=== PATIENT | female | born 1985 ===

== ENCOUNTER 2021-01-29 16:31 | Emergency (ER) | payer MEDICAID, SELFPAY ==
[2021-01-29 16:34] VITALS: BP 118/66; PULSE 76; RESP 16; TEMP 36.1; O2SAT 98; BMI 32.9
[2021-01-29 19:14] LABS: COVID-19 Test Negative (Negative); IDNOW Serial# 08D9AD1C
--- NOTE | 2021-01-29 19:21 | ED_ITS ---
HPI - General Adult General Chief complaint: General Medical Stated complaint: covid symptoms Time Seen by Provider: 01/29/21 17:10 Source: patient Mode of arrival: ambulatory Limitations: no limitations History of Present Illness HPI narrative: 35-year-old female with upper respiratory symptoms, headache, diarrhea presents to the emergency department for COVID-19 testing. She does not report any other symptoms at this time. Onset (ago): day(s) Location: head Radiation: non-radiation Severity: mild Associated symptoms: denies other symptoms Treatments prior to arrival: none Related Data Allergies Allergy/AdvReac Type Severity Reaction Status Date / Time penicillin V Allergy Unknown Verified 03/27/14 00:00 Penicillins [PENICILLINS] Allergy Unknown RASH Unverified 02/26/20 15:20 Review of Systems Review of Systems: Constitutional: Positive headache, No Fever, No Chills ENT/Mouth: No Ear Pain, No Hoarseness, No sore throat Eyes: No Eye Pain, No Swelling, No Redness, No Foreign Body Cardiovascular: No Chest Pain, No SOB Respiratory: Positive Cough, No Dyspnea Gastrointestinal: No Nausea, No Vomiting, positive Diarrhea, No abdominal Pain Genitourinary: No Dysuria, No Hematuria Musculoskeletal: positive joint pain, No Myalgias, No Joint Swelling Skin: No Skin lacerations, No rash Neuro: No Weakness, No Numbness, No Paresthesias, No Loss of Consciousness, No Dizziness, No Headache Psych: No Anxiety/Panic, No Depression Heme/Lymph: no easy bruising, no Lymphadenopathy Endocrine: No Polyuria, No Polydipsia Yes all other systems are reviewed and are negative [facility] Past Medical History Attestation statement: The following information was validated with the patient. Source: old records reviewed Social History Social History Advance Directives: No Physical Exam Vital Signs: Vital Signs: Last Vital Signs Temp 97 F 01/29/21 16:34 Pulse 71 01/29/21 19:25 Resp 18 01/29/21 19:25 BP 120/79 01/29/21 19:25 Pulse Ox 99 01/29/21 19:25 Body Mass Index 32.9 Appearance: Alert. Oriented X3. No acute distress. Eyes: Pupils equal, round and reactive to light. ENT: Pharynx normal. Neck: Normal inspection. Neck supple. CVS: Normal heart rate and rhythm. Pulses normal. Respiratory: No respiratory distress. Breath sounds normal. Abdomen: Soft and nontender. Skin: Skin warm and dry. Normal skin color. Normal skin turgor. Extremities: No lower extremity edema. Neuro: No motor deficit. No sensory deficit. Course Course Course Narrative: 35-year-old female presents for COVID-19 testing. Has had upper respiratory symptoms for few days. She does not report any other symptoms. Stated that she has been to several other locations for COVID-19 testing and had been turned away. COVID test is negative. Patient discharged home. Patient verbalized understanding of and agrees to plan of care. Medical Decision Making Differential Diagnosis Differential Diagnosis: Viral infection Medical Records Medical records reviewed: Yes I reviewed the patient's medical records. Lab Data Lab results reviewed: Yes I reviewed the patient's lab results. Labs: Lab Results 01/29/21 Range/Units 18:47 COVID-19 (VIDHI) Negative (Negative) COVID-19 Clin Com See Note Discharge Plan Discharge Clinical Impression: Upper respiratory infection, viral Patient Disposition: Home, Self-Care Instructions: Viral Syndrome (ED) Additional Instructions: You were evaluated for upper respiratory symptoms. Your COVID-19 test is negative. Thank you for choosing this emergency department for evaluation. Please follow-up with primary care physician as needed. Return to the emergency department for any new, concerning, or worsening symptoms. Interventions: ED Discharge Assessment Last Done: 01/29/21 19:46 Discharge Date/Time: 01/29/21 19:47
[2021-01-29 19:25] VITALS: BP 120/79; PULSE 71; RESP 18; O2SAT 99
== END 2021-01-29 19:47 | disposition home or self-care (01) ==
PROVIDERS: Emergency Provider Emergency Medicine; PCP Family Medicine
DX: J06.9 Acute upper respiratory infection, unspecified (principal); Z20.822 Contact with and (suspected) exposure to COVID-19; R51.9 Headache, unspecified
CPT/HCPCS: 36415; 87635; 99283

== ENCOUNTER 2021-12-15 07:01 | Emergency (ER) | payer MEDICAID, SELFPAY ==
[2021-12-15 07:05] VITALS: BP 124/77; PULSE 90; RESP 18; TEMP 36.1; O2SAT 97; BMI 36.6
--- NOTE | 2021-12-15 07:11 | ED_ITS ---
HPI - URI/Sore Throat General Chief Complaint: Upper Respiratory Symptoms Stated Complaint: sore throat, body aches, chest pain Time Seen by Provider: 12/15/21 07:03 Source: patient Mode of arrival: ambulatory Limitations: no limitations History of Present Illness HPI Narrative: vaccinated and boostered for COVID vaccinated for flu MD elicited complaint: cough, sore throat, rhinorrhea and nasal congestion Onset (ago): day(s) (2) Consistency: constant Severity: moderate Description of mucous: clear Able to tolerate fluids by mouth: Yes Exacerbating factors: swallowing Relieving factors: nothing Context: recent travel (was sick while in [place] - traveled back home got worse) Associated symptoms: chills, headache, rhinorrhea, nasal congestion, sore throat and cough Treatments prior to arrival: none Related Data Allergies Allergy/AdvReac Type Severity Reaction Status Date / Time penicillin V Allergy Unknown Verified 03/27/14 00:00 Penicillins [PENICILLINS] Allergy Unknown RASH Unverified 02/26/20 15:20 Review of Systems Review of Systems: Constitutional : no Fever, positive Chills, positive fatigue, positive Malaise ENT/Mouth : positive sore throat, positive runny nose Eyes: No Discharge Cardiovascular : No Chest Pain, No SOB Respiratory : pos Cough, No Sputum Gastrointestinal : No Nausea, No Vomiting, No Diarrhea Genitourinary : No Dysuria, No Urinary Frequency Musculoskeletal : positive Myalgia Skin : No rash Neuro : No Headache PMFSH Past Medical History Attestation statement: The following information was validated with the patient. Medical History No pertinent past medical history Social History Social History (Updated 12/15/21 @ 07:11 by Paige Baer DO) Patient Tobacco Use Status: Never used Tobacco Advance Directives: No Advance Directives Information Provided: Yes Physical Exam Vital Signs: Vital Signs: Last Vital Signs Temp 97 F 12/15/21 07:05 Pulse 90 12/15/21 07:05 Resp 18 12/15/21 07:05 BP 124/77 12/15/21 07:05 Pulse Ox 97 12/15/21 07:05 O2 Del Method 12/15/21 07:05 BMI result Body Mass Index 36.6 Appearance: Alert. Oriented X3. No acute distress. Eyes: Pupils equal, round and reactive to light. ENT: Pharynx normal. no exudates noted Neck: Normal inspection. Neck supple. CVS: Normal heart rate and rhythm. Pulses normal. Respiratory: No respiratory distress. Breath sounds normal. Abdomen: Soft and non-tender. Skin: Skin warm and dry. Normal skin color. Extremities: No lower extremity edema. Neuro: Oriented X 3. No motor deficit. No sensory deficit. Course Course Course Narrative: no medical problems no severe disease - does not meet criteria for [facility] referral MDM - URI/Sore Throat MDM Narrative Medical decision making narrative: 36 yo female here with c/o URI symptoms x 2 days - vaccinated. Not toxic, stable VS. At this time possible viral vs bronchitis - swabs from triage done. Dispo per results and findings. Lab Data Labs: Lab Results 12/15/21 12/15/21 12/15/21 Range/Units 07:07 07:07 07:08 COVID-19 (VIDHI) Positive A (Negative) COVID-19 Clin Com See Note Influenza Type A (DANE) Negative (Negative) Influenza Type B (DANE) Negative (Negative) Influenza A & B Note See Note S. pyogenes GrpA DANE Negative (Negative) Discharge Plan Discharge Clinical Impression: COVID-19 Patient Disposition: Home, Self-Care Instructions: COVID-19 (Coronavirus Disease 2019) (ED) Additional Instructions: return to ED for any worsening symptoms or concerns if you become so short of breath you cannot walk to the bathroom seek medical care tylenol and motrin for pain quarantine for 5 days then wear a mask for additional 5 days while at work Stand Alone Forms: Work/School Release Interventions: ED Discharge Assessment Last Done: 12/15/21 07:47 Discharge Date/Time: 12/15/21 07:47
[2021-12-15 07:35] LABS: COVID-19 Test Positive (Negative); IDNOW Serial# 16C4AD1C; Influenza A Negative (Negative); Influenza B2 Negative (Negative)
[2021-12-15 07:35] LABS: Strep A Nucleic Acid Negative (Negative)
== END 2021-12-15 07:47 | disposition home or self-care (01) ==
PROVIDERS: Emergency Provider Emergency Medicine
DX: U07.1 COVID-19 (principal); J02.9 Acute pharyngitis, unspecified; M79.10 Myalgia, unspecified site; R05.9 Cough, unspecified
CPT/HCPCS: 87502; 87635; 87651; 99282; 99283

== ENCOUNTER → 2022-02-27 10:45 | Outpatient (BNVA) | payer MEDICAID, SELFPAY | PROVIDERS: Visit Provider Physician Assistant Medical | DX: Z02.1 Encounter for pre-employment examination (principal) ==

== ENCOUNTER 2022-10-14 22:58 | Emergency (ER) | payer OTHER, SELFPAY ==
[2022-10-14 23:01] VITALS: BP 127/61; PULSE 90; RESP 20; TEMP 36.6; O2SAT 96; BMI 36.4
--- NOTE | 2022-10-14 23:33 | PC.NURSE ---
pt has small possible abcess in belly button with pain radiating from the belly button to the right side. Pt states the pain is a burning sensation and is worse upon palpation
--- NOTE | 2022-10-14 23:52 | ED_ITS ---
HPI - Skin/Abscess/Foreign Bdy General Chief complaint: Skin/Abscess/Foreign Body Stated complaint: Bump next to belly button/painful Time Seen by Provider: 10/14/22 23:36 Source: patient Mode of arrival: ambulatory Limitations: no limitations History of Present Illness HPI narrative: This is a 37-year-old female presenting with redness, swelling and drainage from her belly when for the past 2 days. She reports that also feels warm. She tells me this started suddenly, atraumatic. Denies fevers, chills. Patient does not have her belly button peers. Related Data Previous Rx's Medication Instructions Recorded cephalexin 500 mg tablet 500 mg PO Q6H 7 days #28 tabs 10/14/22 doxycycline hyclate 100 mg capsule 100 mg PO BID 10 days #20 caps 10/14/22 Allergies Allergy/AdvReac Type Severity Reaction Status Date / Time penicillin V Allergy Unknown Verified 03/27/14 00:00 Penicillins [PENICILLINS] Allergy Unknown RASH Unverified 02/26/20 15:20 Review of Systems Review of Systems: Constitutional : No Weight loss, No Fever, No Chills, No Fatigue, No Malaise ENT/Mouth : No sore throat, No Rhinorrhea Eyes: No Eye Pain, No Swelling, No Redness Cardiovascular : No Chest Pain, No SOB, No Dyspnea on Exertion, No Orthopnea, No Edema, No Palpitations Respiratory : No Cough, No Sputum, No Wheezing Gastrointestinal : No Nausea, No Vomiting, No Diarrhea, No Constipation, No abdominal Pain, No Hematochezia, No Melena Genitourinary : No Dysuria, No Urinary Frequency, No Hematuria, Musculoskeletal : No joint pain, No Myalgias, No Joint Swelling Skin : No Skin Lesions, + rash Neuro : No Weakness, No Numbness, No Dizziness, No Headache Psych : No Anxiety/Panic, No Depression All other systems reviewed and are negative Yes all other systems are reviewed and are negative [facility] Past Medical History Attestation statement: The following information was validated with the patient. Source: old records reviewed and nursing notes reviewed Medical History No pertinent past medical history Social History Social History Patient Tobacco Use Status: Never used Tobacco Physical Exam Vital Signs: Vital Signs: Last Vital Signs Temp 97.8 F 10/14/22 23:01 Pulse 90 10/14/22 23:01 Resp 20 10/14/22 23:01 BP 127/61 10/14/22 23:01 Pulse Ox 96 10/14/22 23:01 O2 Del Method Room Air 10/14/22 23:01 BMI result Body Mass Index 36.4 Vital signs stable Appearance: Alert.? Oriented X3.? No acute distress.? Head: Normocephalic, atraumatic, no step-offs or deformities Eyes: Pupils equal, round and reactive to light.? ENT: Pharynx normal.? CVS: Normal heart rate and rhythm.? Pulses normal.? Respiratory: No respiratory distress.? Breath sounds normal.? Abdomen: Soft and nontender.? Skin: Skin warm and dry.? Normal skin color.? Normal skin turgor.?Likely cellulitis with draining abscess. No signs of necrotizing infection. Unlikely seroma. No signs of acute abdomen. Extremities: No lower extremity edema.? No calf ttp. 5/5 strength to bilateral upper and lower extremities Neuro: Oriented X 3.? No motor deficit.? No sensory deficit. CN 2-12 intact Medical Decision Making Medical Decision Making [facility] Narrative: [id number] 37 year old female presents w/ leaking belly button X 2 days PE w with cellulitis to inferior aspect of belly button with what appears to be a abscess itself draining with clear discharge. No palpable fluctuance. Abdominal tenderness on exam. Likely cellulitis with draining abscess. No signs of necrotizing infection. Unlikely seroma. No signs of acute abdomen. Plan at this time patient will be discharged with doxycycline Keflex. Differential Diagnosis Differential Diagnoses: The differential diagnosis associated with the presentation includes Likely cellulitis with draining abscess. No signs of necrotizing infection. Unlikely seroma. No signs of acute abdomen. Admission/Observation Consideration of admission/observation: Escalation of care including admission/observation considered Prescription Management I considered prescription management with: Antibiotic Core Measures AMI core measures followed: Yes Measure exclusions: not indicated Critical Care Time Critical Care Time Critical Care Time: No Discharge Plan Discharge Clinical Impression: Cellulitis, Abscess of skin or subcutaneous tissue Patient Disposition: Home, Self-Care Instructions: Cellulitis (ED), Warm Compress or Soak (ED) Additional Instructions: Take your medications as prescribed. If you were prescribed antibiotics today, it is important that you take your medication to their entirety, do not skip any doses, do not finish them early. Follow-up with your primary care provider this week. Return to the emergency department with new or worsening symptoms. Such as fevers, chills, chest pain, shortness of breath, nausea, vomiting, dizziness, headache, vision changes, lethargy In case of emergency call 911 Prescriptions: New doxycycline hyclate 100 mg capsule 100 mg PO BID 10 Days Qty: 20 0RF cephalexin 500 mg tablet 500 mg PO Q6H 7 Days Qty: 28 0RF Referrals: [facility] [Primary Care Provider] - 2 days Stand Alone Forms: Work/School Release
[2022-10-14] MEDS: Doxycycline Monohydrate 100 MG CAPSULE PO (23:55)
[2022-10-14] MEDS: cephALEXin 500 MG CAPSULE PO (23:55)
== END 2022-10-15 00:06 | disposition home or self-care (01) ==
PROVIDERS: Emergency Provider Student in an Organized Health Care Education/Training Program
DX: L03.311 Cellulitis of abdominal wall (principal); L02.211 Cutaneous abscess of abdominal wall
CPT/HCPCS: 99283; 99284

== ENCOUNTER 2022-12-01 21:08 | Emergency (ER) | payer OTHER, SELFPAY ==
--- NOTE | ~2022-12-01 | XR_ITS ---
EXAMINATION: XR CHEST CLINICAL INFORMATION: Chest pain. COMPARISON: Chest radiograph 07/20/2018. TECHNIQUE: Frontal view of the chest was obtained. FINDINGS: No significant abnormality is noted involving the heart, lungs, mediastinum, bony thorax or soft tissues. XR/XR chest 1V IMPRESSION: Unremarkable examination.
--- NOTE | 2022-12-01 21:10 | ECG_ITS ---
Test Reason : chest pain Blood Pressure : / mmHG Vent. Rate : 081 BPM Atrial Rate : 081 BPM P-R Int : 170 ms QRS Dur : 092 ms QT Int : 354 ms P-R-T Axes : 054 040 009 degrees QTc Int : 411 ms Artifact in tracing Normal sinus rhythm Normal ECG When compared with ECG of 09-AUG-2016 12:11, No significant change was found Referred By: Generic ED Physician Electronically Signed By:ROSA TOWNSEND
[2022-12-01 21:59] VITALS: BP 144/83; PULSE 74; RESP 18; TEMP 37.2; BMI 34.7
[2022-12-01 22:09] LABS: MANUAL DIFF FLAG NO
[2022-12-01 22:10] LABS: Basophils Absolute Auto 0.1 X10*3/uL (0.0-0.2); Basophils Percent Auto 0.6 % (0-2); Eosinophils Absolute Auto 0.2 X10*3/uL (0.0-0.4); Hematocrit 37.1 % (37.0-47.0); Hemoglobin 12.8 g/dl (12.0-16.0); Imm Gran Abs Auto 0.02 X10*3/uL (0.00-0.03); Imm Gran Pct Auto 0.3 % (0.0-0.4); Lymphocytes Absolute Auto 2.2 X10*3/uL (1.2-4.9); Lymphocytes Percent Auto 27.7 % (20-40); Mean Corpuscular HGB Conc 34.5 g/dl (31.0-35.0); Mean Corpuscular Hemoglobin 29.2 pg (27.0-33.0); Mean Corpuscular Volume 84.5 fL (80.0-98.0); Mean Platelet Volume 10.4 fL (9.4-12.3); Monocytes Absolute Auto 0.6 X10*3/uL (0.1-1.2); Monocytes Percent Auto 7.9 % (2-11); Neutrophils Absolute Auto 4.8 x10*3/uL (2.0-8.3); Neutrophils Percent Auto 60.5 % (45-73); Platelet Count 330 X10*3/uL (160-400); Red Blood Count 4.39 X10*6/uL (4.20-5.50); Red Cell Distribution Width 13.9 % (11.0-16.0); White Blood Count 7.9 X10*3/uL (4.8-10.8)
--- OUTSIDE RECORDS SUMMARY | 2022-12-01 22:23 | XMS_ITS | Continuity of Care Document ---
Author Name Unknown Organization [facility] ter Address [address] [place] [id number]- Care Team Providers Care Interactive Project Manager Name Role Phone Not on Staff, PCP Primary Care Physician Unavail able Encounter [facility] [place] Date(s): 12/30/19 - 12/30/[address] [address]- [facility] Encounter Diagnosis Gastritis(Final) - 12/30/19 Urinary tract infection(Final) - 12/30/19 Bacterial vaginitis(Final) - 12/30/19 Discharge Disposition: A-D/C Home Attending Physician: Huma Jackson MD Admitting Physician: Huma Jackson MD Referring Physician: Not on Staff, Referring MD Allergies, Adverse Reactions, Alerts Substance Reaction Severity Status penicillin Active Medications Bactrim DS 800 mg-160 mg oral tablet 1 tablet, By Mouth, Every 12 hours, for 5 days, # 10 tablet, 0 Refills, Acute 01/04/20 17:30:00 EDT, 12/30/19 17:30:00 EDT, Tablet, [id number], 1 tablet By Mouth Every 12 hours,x5 days Start Date: 12/30/19 Stop Date: 01/04/20 Status: Ordered lidocaine 5% topical film 1 patch, Topically, Daily, PRN Pain , Mild, remove after 12 hours, # 30 patch, 0 Refills, Maintenance, 10/29/19 13:07:00 EDT, Film Start Date: 10/29/19 Status: Ordered lidocaine 5% topical film 1 patch, Topically, Daily, PRN Pain , Mild, remove after 12 hours, # 30 patch, 0 Refills, Maintenance, 10/29/19 13:49:00 EDT, Film Start Date: 10/29/19 Status: Ordered metroNIDAZOLE 500 mg oral tablet 1 tablet = 500 mg, By Mouth, Every 12 hours, for 7 days, # 14 tablet, 0 Refills, Acute 01/06/20 17:32:00 EDT, 12/30/19 17:32:00 EDT, Tablet, [id number] Start Date: 12/30/19 Stop Date: 01/06/20 Status: Ordered omeprazole 20 mg oral delayed release tablet 1 tablet = 20 mg, By Mouth, Daily, # 30 tablet, 0 Refills, Maintenance, 12/30/19 17:28:00 EDT, CR Tablet, [id number] Start Date: 12/30/19 Stop Date: 01/29/20 Status: Ordered Results Radiology Reports * Exam Date Time Procedure Performing Provider Status 12/30/19 1:35 PM Abdomen AP Flakita Baig; Daniel (Verified) Notes: (Abdomen AP) Reason For Exam: Pain RESULT: XR Abdomen AP XR Abdomen AP INDICATION/CLINICAL QUESTION: Abdominal pain. Concern of free air for bowel obstruction. TECHNIQUE: 2 AP upright views.. COMPARISON: None. FINDINGS: There is no free air.. No gastric distention. No bowel dilatation. No opaque stone upper abdomen. Bones: No acute bony abnormality. IMPRESSION: 1. No free air or bowel dilatation.. WSN: [id number] Ordering Physician: Devan Jalloh Dictated By: Al Woodruff MD Dictated Date/Time: 12/30/19 1:39 pm Reviewed By: Al Woodruff MD Signed By: Al Woodruff MD Signed Date/Time: 12/30/19 1:39 pm Transcribed By: WILLIE Transcribed Date/Time: 12/30/19 1:38 pm Vital Signs Most recent to oldest [Reference Range]: 1 2 3 Oxygen Saturation [94-100 %] 99 % (12/30/19 6:42 PM) 99 % (12/30/19 12:21 PM) 100 % (12/30/19 7:43 AM) Pulse Rate [55-90 bpm] 69 bpm (12/30/19 6:42 PM) 78 bpm (12/30/19 12:21 PM) 82 bpm (12/30/19 7:43 AM) Blood Pressure [90-138/55-84 mm Hg] 126/71mm Hg (12/30/19 6:42 PM) 144/75mm Hg *H* (12/30/19 12:21 PM) 121/82mm Hg (12/30/19 7:43 AM) Respiratory Rate [16-30 br/min] 19 br/min (12/30/19 6:42 PM) 18 br/min (12/30/19 2:16 PM) 19 br/min (12/30/19 12:21 PM) Temperature [96.8-100.4 DegF] 98.2 DegF (12/30/19 6:42 PM) 98.2 DegF (12/30/19 7:43 AM) Liters per Minute 0 L/min (12/30/19 7:43 AM) Mode of Delivery (Oxygen) Room air (12/30/19 6:42 PM) Room air (12/30/19 12:21 PM) Room air (12/30/19 7:43 AM) Blood pressure sites Arm, left (12/30/19 6:42 PM) Temperature Route Oral (12/30/19 6:42 PM)
--- OUTSIDE RECORDS SUMMARY | 2022-12-01 22:23 | XMS_ITS | Continuity of Care Document ---
Author Name Unknown Organization [facility] ter Address [address] [place] [id number]- Care Team Providers Care Mechanical Engineering Draftsperson Name Role Phone Not on Staff, PCP Primary Care Physician Unavail able [place] [facility] [place] - 10/29/[address] [id number] [facility] Discharge Disposition: A-D/C Home Attending Physician: Benoit Montana DO Admitting Physician: Benoit Montana DO Referring Physician: Not on Staff, Referring MD Allergies, Adverse Reactions, Alerts Substance Reaction Severity Status NKA Active Medications lidocaine 5% topical film 1 patch, Topically, Daily, PRN Pain , Mild, remove after 12 hours, # 30 patch, 0 Refills, Maintenance, 10/29/19 13:07:00 EDT, Film Start Date: 10/29/19 Status: Ordered lidocaine 5% topical film 1 patch, Topically, Daily, PRN Pain , Mild, remove after 12 hours, # 30 patch, 0 Refills, Maintenance, 10/29/19 13:49:00 EDT, Film Start Date: 10/29/19 Status: Ordered Vital Signs Most recent to oldest [Reference Range]: 1 2 3 Oxygen Saturation [94-100 %] 100 % (10/29/19 12:49 PM) 100 % (10/29/19 12:43 PM) Pulse Rate [55-90 bpm] 94 bpm *H* (10/29/19 12:49 PM) 80 bpm (10/29/19 12:43 PM) Blood Pressure [90-138/55-84 mm Hg] 122/87mm Hg (10/29/19 12:49 PM) Respiratory Rate [16-30 br/min] 16 br/min (10/29/19 1:42 PM) 16 br/min (10/29/19 1:33 PM) 16 br/min (10/29/19 12:49 PM) Temperature [96.8-100.4 DegF] 98.4 DegF (10/29/19 12:49 PM) Mode of Delivery (Oxygen) Room air (10/29/19 12:49 PM) Room air (10/29/19 12:43 PM) Blood pressure sites Arm, left (10/29/19 12:49 PM) Temperature Route Oral (10/29/19 12:49 PM)
[2022-12-01 22:30] LABS: Anion Gap 15 (12-20); Blood Urea Nitrogen 19 mg/dL (9-16); Calcium 10.1 mg/dL (8.4-10.2); Carbon Dioxide 27 mmol/L (22-29); Chloride 102 mmol/L (96-108); Creatinine Clr Calc Pharmacy 102.4; Estimated Glomerular Filt Rate > 60; Glucose Random 89 mg/dL (60-115); Potassium 3.6 mmol/L (3.3-5.1); Sodium 140 mmol/L (135-145)
[2022-12-01 22:39] LABS: Troponin-I High Sensitivity < 2.7 ng/L (<3.5-17.0)
--- NOTE | 2022-12-01 22:39 | ED.CHESTPAIN ---
HPI - Chest Pain General Chief Complaint: Chest Pain Stated Complaint: Chest pain Time Seen by Provider: 12/01/22 21:44 History of Present Illness HPI narrative: Patient is a 37-year-old female present today with having chest pain over the left side. It is not associated with shortness breath no diaphoresis it is worse with certain movement. A she has no history of diabetes, hypertension, high cholesterol, smoking, CO. No family history of coronary artery disease. No coughing or congestion or upper respiratory symptoms. No history of blood clots. No leg swelling. Pain not made worse with deep breath. Patient is from home. No recent travel. Related Data Previous Rx's Medication Instructions Recorded cephalexin 500 mg tablet 500 mg PO Q6H 7 days #28 tabs 10/14/22 doxycycline hyclate 100 mg capsule 100 mg PO BID 10 days #20 caps 10/14/22 ibuprofen 400 mg tablet 400 mg PO Q6H PRN pain #20 tabs 12/02/22 Allergies Allergy/AdvReac Type Severity Reaction Status Date / Time penicillin V Allergy Unknown Verified 03/27/14 00:00 Penicillins [PENICILLINS] Allergy Unknown RASH Unverified 02/26/20 15:20 Review of Systems Review of Systems: Positive chest pain Yes all other systems are reviewed and are negative [facility] Past Medical History Attestation statement: The following information was validated with the patient. Medical History No pertinent past medical history Social History Social History Patient Tobacco Use Status: Never used Tobacco Advance Directives: No Advance Directives Information Provided: Yes Physical Exam Vital Signs: Vital Signs: Last Vital Signs Temp 99.0 F 12/01/22 21:59 Pulse 74 12/01/22 21:59 Resp 18 12/01/22 21:59 BP 144/83 H 12/01/22 21:59 O2 Del Method Room Air 12/01/22 21:59 BMI result Body Mass Index 34.7 Appearance: Alert. Oriented X3. No acute distress. Eyes: Pupils equal, round and reactive to light. ENT: Pharynx normal. Neck: Normal inspection. Neck supple. No lymph nodes noted. No crepitus CVS: Normal heart rate and rhythm. Pulses normal. Normal S1 and S2 Respiratory: No respiratory distress. Breath sounds normal. No Wheezing. No rales Abdomen: Soft and nontender. No rigidity. No distention. good BS x4 Skin: Skin warm and dry. Normal skin color. Normal skin turgor. Extremities: No lower extremity edema. Neurovascular intact to all extremities. No Lacerations. No Rash Neuro: Oriented X 3. No motor deficit. No sensory deficit. Moving all extermities. No slurred speech Medical Decision Making Differential Diagnosis Patient has nonspecific chest pain. Cardiac enzyme is negative. No significant cardiac risk. Patient is 37 years old no history of diabetes, hypertension, high cholesterol, smoking, mi. No risk for pulmonary emboli, a negative D-dimer making PE unlikely. Patient's chest x-ray showed no evidence of pneumonia no pneumothorax. Pain is atypical will discharge patient home close follow-up on an outpatient basis. Heart score is less than 3 Admission/Observation Coronary artery disease, PE, chest wall pain, pneumothorax, rib fracture Lab Data MDM Lab Attestation statement: I reviewed the patient's lab results. 12/01/22 22:05 12/01/22 22:06 Labs: Lab Results 12/01/22 12/01/22 12/01/22 Range/Units 22:05 22:05 22:06 WBC 7.9 (4.8-10.8) X10*3/uL RBC 4.39 (4.20-5.50) X10*6/uL Hgb 12.8 (12.0-16.0) g/dl Hct 37.1 (37.0-47.0) % MCV 84.5 (80.0-98.0) fL MCH 29.2 (27.0-33.0) pg MCHC 34.5 (31.0-35.0) g/dl RDW 13.9 (11.0-16.0) % Plt Count 330 (160-400) X10*3/uL MPV 10.4 (9.4-12.3) fL Immature Gran % (Auto) 0.3 (0.0-0.4) % Neut % (Auto) 60.5 (45-73) % Lymph % (Auto) 27.7 (20-40) % Sanders % (Auto) 7.9 (2-11) % Eos % (Auto) 3.0 (0-4) % Baso % (Auto) 0.6 (0-2) % Lymph # (Auto) 2.2 (1.2-4.9) X10*3/uL Sanders # (Auto) 0.6 (0.1-1.2) X10*3/uL Eos # (Auto) 0.2 (0.0-0.4) X10*3/uL Baso # (Auto) 0.1 (0.0-0.2) X10*3/uL Abs Immat Gran (auto) 0.02 (0.00-0.03) X10*3/uL Absolute Neuts (auto) 4.8 (2.0-8.3) x10*3/uL Absolute Nucleated RBC 0.000 (0.0-0.012) X10*3/uL Nucleated RBC % (auto) 0.0 (0.0-0.2) /100WBC D-Dimer High Sensitivty NG/ML Sodium 140 (135-145) mmol/L Potassium 3.6 (3.3-5.1) mmol/L Chloride 102 (96-108) mmol/L Carbon Dioxide 27 (22-29) mmol/L Anion Gap 15 (12-20) BUN 19 H (9-16) mg/dL Creatinine 0.75 (0.5-1.4) mg/dL Estim Creat Clear Calc 102.4 Estimated GFR > 60 Random Glucose 89 (60-115) mg/dL Calcium 10.1 (8.4-10.2) mg/dL Troponin I High Sens < 2.7 (<3.5-17.0) ng/L 12/02/22 Range/Units 00:00 WBC (4.8-10.8) X10*3/uL RBC (4.20-5.50) X10*6/uL Hgb (12.0-16.0) g/dl Hct (37.0-47.0) % MCV (80.0-98.0) fL MCH (27.0-33.0) pg MCHC (31.0-35.0) g/dl RDW (11.0-16.0) % Plt Count (160-400) X10*3/uL MPV (9.4-12.3) fL Immature Gran % (Auto) (0.0-0.4) % Neut % (Auto) (45-73) % Lymph % (Auto) (20-40) % Sanders % (Auto) (2-11) % Eos % (Auto) (0-4) % Baso % (Auto) (0-2) % Lymph # (Auto) (1.2-4.9) X10*3/uL Sanders # (Auto) (0.1-1.2) X10*3/uL Eos # (Auto) (0.0-0.4) X10*3/uL Baso # (Auto) (0.0-0.2) X10*3/uL Abs Immat Gran (auto) (0.00-0.03) X10*3/uL Absolute Neuts (auto) (2.0-8.3) x10*3/uL Absolute Nucleated RBC (0.0-0.012) X10*3/uL Nucleated RBC % (auto) (0.0-0.2) /100WBC D-Dimer High Sensitivty < 150 NG/ML Sodium (135-145) mmol/L Potassium (3.3-5.1) mmol/L Chloride (96-108) mmol/L Carbon Dioxide (22-29) mmol/L Anion Gap (12-20) BUN (9-16) mg/dL Creatinine (0.5-1.4) mg/dL Estim Creat Clear Calc Estimated GFR Random Glucose (60-115) mg/dL Calcium (8.4-10.2) mg/dL Troponin I High Sens (<3.5-17.0) ng/L Independent Interpretation I performed an independent interpretation of an: EKG Interpretation: My interpretation patient's EKG showed a sinus rhythm heart rate is 75 AL QRS QTC within normal limits is no ST segment elevation Radiology Impression Discussion of test interpretation with radiology: I have reviewed the radiologist's reading. Prescription Management I considered prescription management with: Pain Medication Discharge Plan Discharge Clinical Impression: Chest pain Patient Disposition: Home, Self-Care Instructions: Chest Pain (DC) Prescriptions: New ibuprofen 400 mg tablet 400 mg PO Q6H PRN (Reason: pain) Qty: 20 0RF No Action doxycycline hyclate 100 mg capsule 100 mg PO BID 10 Days Qty: 20 0RF cephalexin 500 mg tablet 500 mg PO Q6H 7 Days Qty: 28 0RF Referrals: Genevieve Coronado MD [Primary Care Provider] - 12/04/22
[2022-12-02 00:17] LABS: D Dimer High Sensitivity < 150 NG/ML
== END 2022-12-02 01:58 | disposition home or self-care (01) ==
PROVIDERS: Emergency Provider Emergency Medicine Emergency Medical Services; PCP Family Medicine
DX: R07.89 Other chest pain (principal); Z79.899 Other long term (current) drug therapy
CPT/HCPCS: 36415; 71045; 80048; 84484; 85025; 85379; 93005; 99283

== ENCOUNTER 2023-03-05 08:46 | Emergency (ER) | payer OTHER, SELFPAY ==
--- NOTE | 2023-03-05 09:03 | ECG_ITS ---
Test Reason : CHEST PAIN Blood Pressure : / mmHG Vent. Rate : 081 BPM Atrial Rate : 081 BPM P-R Int : 164 ms QRS Dur : 100 ms QT Int : 356 ms P-R-T Axes : 051 025 001 degrees QTc Int : 413 ms Normal sinus rhythm ST elevation in Lateral leads Septal infarct , age undetermined Abnormal ECG When compared with ECG of 01-DEC-2022 21:08, No significant change was found Referred By: Generic ED Physician Electronically Signed By:MARIA ALEJANDRA ESPARZA
[2023-03-05 09:15] VITALS: BP 106/70; PULSE 84; RESP 17; TEMP 36.4; O2SAT 97; BMI 39.2
[2023-03-05 09:59] LABS: IDNOW Serial# 08D9AD1C; IDNOW Serial# 9DB6401D; Influenza A Negative (Negative); Influenza B2 Negative (Negative); Strep A Nucleic Acid Negative (Negative)
[2023-03-05 10:00] LABS: COVID-19 Test Negative (Negative); IDNOW Serial# BCCEAD1C
--- NOTE | 2023-03-05 10:35 | ED_ITS ---
HPI - General Adult General Chief complaint: Upper Respiratory Symptoms Stated complaint: chest pain sore throat ear pain headache Time Seen by Provider: 03/05/23 10:17 Source: patient Mode of arrival: ambulatory Limitations: no limitations History of Present Illness HPI narrative: 37-year-old female presents to ED for sore throat, bilateral ear pain, runny nose, coughing, body aches, and chills and chest congestion. Patient denies any chest pain, shortness of breath, leg swelling, calf pain, coughing up blood, pleurisy, recent long travel or recent surgery. Patient states her daughter was sick 1st she became sick and now her younger son is sick also with similar symptoms. Related Data Previous Rx's Medication Instructions Recorded cephalexin 500 mg tablet 500 mg PO Q6H 7 days #28 tabs 10/14/22 doxycycline hyclate 100 mg capsule 100 mg PO BID 10 days #20 caps 10/14/22 ibuprofen 400 mg tablet 400 mg PO Q6H PRN pain #20 tabs 12/02/22 benzonatate 150 mg capsule 150 mg PO TID PRN cough 5 days #15 03/05/23 caps Allergies Allergy/AdvReac Type Severity Reaction Status Date / Time penicillin V Allergy Unknown Verified 03/27/14 00:00 Penicillins [PENICILLINS] Allergy Unknown RASH Unverified 02/26/20 15:20 Review of Systems Review of Systems: Coughing, sore throat, fever, bilateral ear pain, nasal congestion, chest congestion Yes all other systems are reviewed and are negative PMFSH Past Medical History Medical History No pertinent past medical history Social History Social History Patient Tobacco Use Status: Never used Tobacco Smoked in Last 30 Days: No Use of substances other than those prescribed or required for medical reasons: No Advance Directives: No Advance Directives Information Provided: Yes Physical Exam ED Vital Signs: Vital Signs - 24 hr 03/05/23 09:15 Temperature 97.6 F Pulse Rate 84 Respiratory Rate 17 Blood Pressure 106/70 Pulse Oximetry 97 BMI result Body Mass Index 39.2 Const General: cooperative, healthy appearing, comfortable, no acute distress, well developed, alert, awake and Physically active Orientation/consciousness: oriented to person, oriented to place, oriented to time and patient oriented x3 [facility] Head: Yes normal to inspection, Yes No palpable skull fracture present, Yes normocephalic, Yes atraumatic and No abrasion Ears: hearing grossly normal bilaterally, external ears normal, TM's normal bilaterally, TM normal on the right, TM normal on the left, EAC's normal, mastoids normal and no periauricular adenopathy Throat: Yes posterior oropharynx normal, Yes tonsils normal and Yes uvula midline Eyes General: appearance normal, both eyes and all related structures Neck Neck: Yes normal visual inspection, Yes full ROM, Yes no lymphadenopathy, Yes no meningeal signs, Yes trachea midline, Yes supple, No anterior neck swelling and No tender Chest Chest palpation & inspection: normal inspection of the chest and normal palpation of entire chest wall Resp Effort & Inspection: normal respiratory effort and able to speak in complete sentences Auscultation: clear to auscultation bilaterally Cardio Jugular venous distension: no JVD Heart sounds: S1 normal heart sound present and S2 normal heart sound present GI Inspection: Yes normal to inspection and No abdominal wall ecchymosis Palpation (GI): Soft to palpation, not firm, nontender, no guarding and not rigid General: No CVA tenderness and Yes no CVA tenderness Back/Spine/Pelvis Back: no CVA tenderness, No CVA tenderness and No back tenderness Skin General skin exam: no rashes or lesions noted, elasticity normal and turgor normal Neuro General: oriented to person, oriented to place, oriented to time, patient oriented x3, gait normal, tone normal, moves all extremities, Normal light touch and pain sensation, no meningeal signs, no focal motor deficits, CN's II-XI intact bilaterally and normal sensation to monofilament Extrem General: Yes normal to inspection and Yes full ROM Psych Appearance: grossly normal, well kempt and not disheveled Medical Decision Making Medical Decision Making MDM Narrative: 37-year-old female presents to ED for coughing, bilateral ear pain, sore throat, nasal congestion, and chest congestion for the past couple days. Patient states daughter was sick 1st and also younger son is also having similar symptoms. Patient denies any chest pain or shortness of breath. Patient states no recent long travel, recent surgery, pleurisy, leg swelling, calf pain, or coughing up blood. Differential Diagnosis Differential Diagnoses: The differential diagnosis associated with the presentation includes ( COVID, influenza, strep, pneumonia, viral syndrome.) Admission/Observation Consideration of admission/observation: Escalation of care including admission/observation considered Lab Data MDM Lab Attestation statement: I reviewed the patient's lab results. Labs: Lab Results 03/05/23 Range/Units 09:36 COVID-19 (VIDHI) Negative (Negative) COVID-19 Clin Com See Note Influenza Type A (DANE) Negative (Negative) Influenza Type B (DANE) Negative (Negative) Influenza A & B Note See Note S. pyogenes GrpA DANE Negative (Negative) Independent Interpretation I performed an independent interpretation of an: EKG (Negative STEMI. NOrmal sinus rhythm. NO EKG changes) External Record Review External record reviewed: Other (Prior ED visit) Tests considered The following testing was considered but not selected: Xray Prescription Management I considered prescription management with: Other (santiago moraes) Discharge Plan Discharge Clinical Impression: Upper respiratory infection Patient Disposition: Home, Self-Care Instructions: Upper Respiratory Infection (ED) Additional Instructions: Please follow-up with your primary care provider. Return to the ED immediately for any chest pain, shortness of breath, coughing up blood, leg swelling, calf pain, weakness, dizziness, intractable fever, or any other concerning symptoms. Prescriptions: New benzonatate 150 mg capsule 150 mg PO TID PRN (Reason: cough) 5 Days Qty: 15 0RF No Action doxycycline hyclate 100 mg capsule 100 mg PO BID 10 Days Qty: 20 0RF cephalexin 500 mg tablet 500 mg PO Q6H 7 Days Qty: 28 0RF ibuprofen 400 mg tablet 400 mg PO Q6H PRN (Reason: pain) Qty: 20 0RF Stand Alone Forms: Work/School Release Interventions: ED Discharge Assessment Last Done: 03/05/23 11:02 Discharge Date/Time: 03/05/23 11:02 Print Language: Slovak
== END 2023-03-05 11:02 | disposition home or self-care (01) ==
PROVIDERS: Emergency Provider Emergency Medicine; PCP Family Medicine
DX: J06.9 Acute upper respiratory infection, unspecified (principal); J02.9 Acute pharyngitis, unspecified; H92.03 Otalgia, bilateral; Z20.822 Contact with and (suspected) exposure to COVID-19
CPT/HCPCS: 87502; 87635; 87651; 93005; 99283; 99284

== ENCOUNTER 2024-02-21 08:07 | Emergency (ER) | payer MEDICAID, SELFPAY ==
--- NOTE | ~2024-02-21 | XR_ITS ---
EXAMINATION: XR HAND/WRIST, RIGHT CLINICAL INFORMATION: Atraumatic pain COMPARISON: None available. TECHNIQUE: PA, lateral, and oblique views of the right hand and wrist. FINDINGS: No acute visible fracture or dislocation. Slight negative ulnar variance. Joint spaces and alignment are maintained. Soft tissues are unremarkable. XR/XR hand wrist RT IMPRESSION: 1. No acute visible fracture or dislocation. 2. Slight negative ulnar variance. Electronically signed by: Erika Omalley MD 02/21/2024 09:47 AM EDT
--- NOTE | ~2024-02-21 | XR_ITS ---
EXAMINATION: XR HAND/WRIST, LEFT CLINICAL INFORMATION: Atraumatic pain COMPARISON: None available. TECHNIQUE: Four views of the left hand and wrist. FINDINGS: No acute visible fracture or dislocation. Slight negative ulnar variance. Joint spaces and alignment are maintained. Soft tissues are unremarkable. XR/XR hand wrist LT IMPRESSION: 1. No acute visible fracture or dislocation. 2. Slight negative ulnar variance. Electronically signed by: Erika Omalley MD 02/21/2024 09:42 AM EDT
--- NOTE | 2024-02-21 08:28 | ED_ITS ---
HPI - General Adult General Chief complaint: General Medical Stated complaint: Swollen hands/feet Time Seen by Provider: 02/21/24 08:20 Source: patient Mode of arrival: ambulatory Limitations: no limitations History of Present Illness ED Provider: DRAKE MANJARREZ PA-C HPI narrative: 38 year old female with pmhx significant for eczema presents to the ED today for evaluation of arthralgias x2-3 weeks. Reports pain/ swelling to bilateral hands and feet along with pain to her bilateral shoulders. States her joints are aching. Taking motrin at home with little relief. Last dose yesterday. Denies known personal or familial autoimmune or rheumatologic conditions. Denies known tick or insect bites. Denies fever, chills, rashes, chest pain, palpitations, SOB, N/V, calf pain/swelling. Denies recent travel or long car rides. Related Data Previous Rx's ?Medication ?Instructions ?Recorded cephalexin 500 mg tablet 500 mg PO Q6H 7 days #28 tabs 10/14/22 doxycycline hyclate 100 mg capsule 100 mg PO BID 10 days #20 caps 10/14/22 ibuprofen 400 mg tablet 400 mg PO Q6H PRN pain #20 tabs 12/02/22 benzonatate 150 mg capsule 150 mg PO TID PRN cough 5 days #15 03/05/23 caps naproxen 500 mg tablet 500 mg PO Q8-12H PRN pain (scale 02/21/24 score 1-3) #20 tabs prednisone 20 mg tablet 40 mg (2 x 20 mg) PO DAILY 5 days 02/21/24 #10 tabs Allergies Allergy/AdvReac Type Severity Reaction Status Date / Time penicillin V Allergy Unknown Rash Verified 02/21/24 08:58 Penicillins [PENICILLINS] Allergy Unknown RASH Unverified 02/21/24 08:58 Review of Systems 2 Review of Systems: Constitutional: No fever, chills, fatigue, night sweats, weight changes ENT/Mouth: No ear pain, hearing loss, nasal congestion, sinus pain, rhinorrhea, sore throat Eyes: No eye pain, swelling, redness, vision changes, discharge Cardio: No chest pain, palpitations, ALMONTE, orthopnea, peripheral edema Pulm: No SOB, cough, sputum, wheezing, dyspnea, hemoptysis GI: No nausea, vomiting, hematemesis, abdominal pain, diarrhea, constipation, hematochezia, melena : No irregular bleeding, dysuria, frequency, urgency, hesitancy, hematuria, flank pain, urinary flow changes, urinary incontinence or retention MSK: No back pain, neck pain, joint pain, +myalgias Skin: No lesions, rashes Neuro: No weakness, numbness, paresthesias, LOC, dizziness, headache Psych: No anxiety/panic, depression, SI/HI, AH/VH All other systems reviewed and are negative. [facility] Past Medical History Attestation statement: The following information was validated with the patient. Source: old records reviewed and nursing notes reviewed Medical History No pertinent past medical history Social History Social History Patient Tobacco Use Status: Never used Tobacco Smoked in Last 30 Days: No Use of substances other than those prescribed or required for medical reasons: No Advance Directives: No Advance Directives Information Provided: Yes Do you have a plan to hurt others: No Plan Patient : No Physical Exam ED Vital Signs: Vital Signs - 24 hr 02/21/24 08:55 02/21/24 10:47 Temperature 98.0 F 98.0 F Pulse Rate 74 74 Respiratory Rate 16 16 Blood Pressure 124/76 124/76 Pulse Oximetry 97 97 Oxygen Delivery Method Room Air Room Air BMI result Body Mass Index 34.7 Vital signs stable General: Well appearing, in no acute distress. Skin: Warm, dry, intact. No rashes or lesions. Head: Normocephalic, atraumatic. EENT: Hearing is intact b/l. Conjunctiva clear. Sclera is anicteric. PERRLA. EOM intact. Moist mucous membranes.?No malar rash. Neck: Supple without LAD. FROM. Trachea midline.? Cardiac: Chest wall symmetric. RRR. No MRG. No JVD. Lungs: Normal respiratory effort without accessory muscle use. CTA bilaterally. No rales, rhonchi, or wheezes.? Ext: Eczematous plaques to extensor surfaces of upper and lower extremities. No signs of infection. no noted swelling to b/l hands/ feet. FROM intact to b/l wrists, all digits, b/l ankles and all toes. tender to percussion over ventral wrists. tinel and phalen negative. Neuro: AOx3. Normal speech. Strength 5/5 intact throughout. Sensation intact to light touch. NV intact distally. Reflexes 2+ bilaterally. Ambulating with steady gait. Psych: Appropriate mood and affect. Responds appropriately to questions. Course Course Course Narrative: 1040 -- CBC without leukocytosis or left shift. No anemia, H&H stable. ESR elevated to 26, CRP elevated to 1.91. BNP undetectable > unlikely CHF. Urine with large amount of blood and RBCs secondary to patient being on her menstrual period. Negative nitrites, small leukocyte esterase, 11-20 squamous epithelial cells, trace urine bacteria. Likely contamination given patient is asymptomatic. will await urine culture results to treat for true UTI. Urine negative. Bilateral hand/wrist x-rays unremarkable. No visible fracture, dislocation. No noted calcium deposition. > SURYA titers and lyme/ tick panel pending. > concern for rheumatologic disorder. will provide patient with referral. naproxen sent to pharmacy. Patient has remained stable throughout ED visit today. Discussed worrisome signs and symptoms and when to return to the ED. All questions answered at this time. Patient is agreeable with disposition and stable for discharge. Medications Administered Discontinued Medications Generic Name Dose Route Start Last Admin Trade Name Freq PRN Reason Stop Dose Admin Morphine Sulfate 15 mg 02/21/24 09:32 02/21/24 09:59 Morphine Sulfate Immed Release 15 Mg Tablet PO 02/21/24 09:33 15 mg ONCE ONE Administration Medical Decision Making Medical Decision Making [facility] Narrative: 38 year old female with pmhx significant for eczema presents to the ED today for evaluation of arthralgias x2-3 weeks. Vital signs stable, afebrile. She is nontoxic-appearing and in no acute distress. On exam of extremities, eczematous plaques to extensor surfaces of upper and lower extremities. No signs of infection. no noted swelling to b/l hands/ feet. FROM intact to b/l wrists, all digits, b/l ankles and all toes. tender to percussion over ventral wrists. tinel and phalen negative. no pitting edema. no calf tenderness b/l. Lungs CTA b/l. Differential diagnosis includes carpel tunnel, OA, RA, lupus, lyme/ tick bourne illness. Lower suspicion for gout, pseudogout. Unlikely CHF, DVT, compartment syndrome, NV compromise, threat to limb. Plan for labs, inflammatory markers, tick/lyme panel, SURYA, UA, u preg, xrs, pain control, re-evaluation. Differential Diagnosis Differential Diagnoses: The differential diagnosis associated with the presentation includes As above Admission/Observation Not indicated Lab Data MDM Lab Attestation statement: I reviewed the patient's lab results. As above 02/21/24 08:46 02/21/24 10:03 Labs: Lab Results 02/21/24 02/21/24 Range/Units 08:46 10:03 WBC 4.7 L (4.8-10.8) X10*3/uL RBC 4.18 L (4.20-5.50) X10*6/uL Hgb 12.4 (12.0-16.0) g/dl Hct 34.9 L (37.0-47.0) % MCV 83.5 (80.0-98.0) fL MCH 29.7 (27.0-33.0) pg MCHC 35.5 H (31.0-35.0) g/dl RDW 14.0 (11.0-16.0) % Plt Count 335 (160-400) X10*3/uL MPV 10.2 (9.4-12.3) fL Immature Gran % (Auto) 0.2 (0.0-0.4) % Neut % (Auto) 63.1 (45-73) % Lymph % (Auto) 25.3 (20-40) % [place] % (Auto) 6.9 (2-11) % Eos % (Auto) 3.4 (0-4) % Baso % (Auto) 1.1 (0-2) % Lymph # (Auto) 1.2 (1.2-4.9) X10*3/uL [place] # (Auto) 0.3 (0.1-1.2) X10*3/uL Eos # (Auto) 0.2 (0.0-0.4) X10*3/uL Baso # (Auto) 0.1 (0.0-0.2) X10*3/uL Abs Immat Gran (auto) 0.01 (0.00-0.03) X10*3/uL Absolute Neuts (auto) 2.9 (2.0-8.3) x10*3/uL Absolute Nucleated RBC 0.000 (0.0-0.012) X10*3/uL Nucleated RBC % (auto) 0.0 (0.0-0.2) /100WBC ESR 26 H (0-20) MM/HR Sodium 139 (135-145) mmol/L Potassium 3.9 (3.3-5.1) mmol/L Chloride 107 (96-108) mmol/L Carbon Dioxide 24 (22-29) mmol/L Anion Gap 12 (12-20) BUN 15 (9-16) mg/dL Creatinine 0.72 (0.5-1.4) mg/dL Estim Creat Clear Calc 105.7 Estimated GFR > 60 Random Glucose 86 (60-115) mg/dL Uric Acid 4.9 (2.4-5.7) mg/dL Calcium 9.3 D (8.4-10.2) mg/dL Total Bilirubin 0.4 (0.0-1.0) mg/dL AST 16 (5-31) U/L ALT 11 (0-31) U/L Alkaline Phosphatase 61 (39-117) U/L C-Reactive Protein 1.91 H (< or = 0.50) mg/dL B-Natriuretic Peptide < 10 (<100) pg/mL Total Protein 7.7 (6.5-8.0) g/dL Albumin 4.4 (3.5-5.0) g/dL Beta HCG, Quant < 2 mIU/mL Urine Color Dark Yellow Urine Appearance Turbid Urine pH 6.5 (5.0-9.0) Ur Specific [place] 1.025 (1.005-1.025) Urine Protein 30 (1+) H (Neg-Trace) mg/dL Urine Glucose (UA) Negative (Negative) mg/dL Urine Ketones Negative (Negative) mg/dL Urine Blood Large (3+) H (Negative) Urine Nitrite Negative (Negative) Ur Leukocyte Esterase Small (1+) H (Negative) Urine RBC >20 H (0-2) /HPF Urine WBC 21-50 H (0-5) /HPF Ur Squamous Epith Cells 11-20 (0-2) /HPF Urine Bacteria Trace (None Seen) Hyaline Casts 0-2 (0-2) /LPF Urine Test NEGATIVE (NEGATIVE) Independent Interpretation I performed an independent interpretation of an: Plain X-Ray Interpretation: X-ray right hand/wrist without fracture, agree with radiologist's interpretation. X-ray left hand/wrist without fracture, agree with radiologist's interpretation. Radiology Impression Discussion of test interpretation with radiology: I have reviewed the radiologist's reading. Radiologist Impression: EXAMINATION: XR HAND/WRIST, LEFT CLINICAL INFORMATION: Atraumatic pain COMPARISON: None available. TECHNIQUE: Four views of the left hand and wrist. FINDINGS: No acute visible fracture or dislocation. Slight negative ulnar variance. Joint spaces and alignment are maintained. Soft tissues are unremarkable. XR/XR hand wrist LT IMPRESSION: 1. No acute visible fracture or dislocation. 2. Slight negative ulnar variance. Electronically signed by: Erika Omalley MD 02/21/2024 09:42 AM [employer] EXAMINATION: XR HAND/WRIST, RIGHT CLINICAL INFORMATION: Atraumatic pain COMPARISON: None available. TECHNIQUE: PA, lateral, and oblique views of the right hand and wrist. FINDINGS: No acute visible fracture or dislocation. Slight negative ulnar variance. Joint spaces and alignment are maintained. Soft tissues are unremarkable. XR/XR hand wrist RT IMPRESSION: 1. No acute visible fracture or dislocation. 2. Slight negative ulnar variance. Electronically signed by: Erika Omalley MD 02/21/2024 09:47 AM [employer] External Record Review External record reviewed: Inpatient record Prescription Management I considered prescription management with: Pain Medication Chronic Conditions Patient?s care impacted by: Other (Eczema) Social Determinants Patient?s care significantly limited by Social Determinants of Health including: Other Social Determinant of Health Critical Care Time Critical Care Time Critical Care Time: No Discharge Plan Discharge Clinical Impression: Arthralgia Patient Disposition: Home, Self-Care Instructions: Arthralgia (ED), Autoimmune Disease (ED) Additional Instructions: Your blood work today is reassuring. Your blood has been sent to the lab to test for lyme and tick bourne disease. You will be called with any positive results and will be treated appropriately at that time. Your blood has also been tested for suspected rheumatologic disorders. This may take a few weeks to return. Please follow up with your primary care provider. You have also been provided with a referral to a international sales representative. Please call them to make an appointment. They will not call you. Naproxen as an anti-inflammatory that has been sent to your pharmacy. Do not take this with other NSAIDs such as Motrin or Aleve as this can increased risk of GI bleeding. Prednisone is a steroid that has been sent to your pharmacy for you to take over the next 5 days. If you are diabetic, please monitor your sugars at home has this can increase them Return with new or worsening symptoms. In the case of an emergency call 911. Prescriptions: New naproxen 500 mg tablet 500 mg PO Q8-12H PRN (Reason: pain (scale score 1-3)) Qty: 20 0RF prednisone 20 mg tablet 40 mg PO DAILY 5 Days Qty: 10 0RF No Action doxycycline hyclate 100 mg capsule 100 mg PO BID 10 Days Qty: 20 0RF cephalexin 500 mg tablet 500 mg PO Q6H 7 Days Qty: 28 0RF benzonatate 150 mg capsule 150 mg PO TID PRN (Reason: cough) 5 Days Qty: 15 0RF ibuprofen 400 mg tablet 400 mg PO Q6H PRN (Reason: pain) Qty: 20 0RF Referrals: Genevieve Coronado MD [Primary Care Provider] - Interventions: ED Discharge Assessment Last Done: 02/21/24 10:47 Discharge Date/Time: 02/21/24 10:52 Print Language: Georgian
[2024-02-21 08:54] LABS: MANUAL DIFF FLAG NO
[2024-02-21 08:55] VITALS: BP 124/76; PULSE 74; RESP 16; TEMP 36.7; O2SAT 97; BMI 34.7
[2024-02-21 08:57] LABS: Basophils Absolute Auto 0.1 X10*3/uL (0.0-0.2); Basophils Percent Auto 1.1 % (0-2); Eosinophils Absolute Auto 0.2 X10*3/uL (0.0-0.4); Eosinophils Percent Auto 3.4 % (0-4); Hematocrit 34.9 % (37.0-47.0); Hemoglobin 12.4 g/dl (12.0-16.0); Imm Gran Abs Auto 0.01 X10*3/uL (0.00-0.03); Imm Gran Pct Auto 0.2 % (0.0-0.4); Lymphocytes Absolute Auto 1.2 X10*3/uL (1.2-4.9); Lymphocytes Percent Auto 25.3 % (20-40); Mean Corpuscular HGB Conc 35.5 g/dl (31.0-35.0); Mean Corpuscular Hemoglobin 29.7 pg (27.0-33.0); Mean Corpuscular Volume 83.5 fL (80.0-98.0); Mean Platelet Volume 10.2 fL (9.4-12.3); Monocytes Absolute Auto 0.3 X10*3/uL (0.1-1.2); Monocytes Percent Auto 6.9 % (2-11); Neutrophils Absolute Auto 2.9 x10*3/uL (2.0-8.3); Neutrophils Percent Auto 63.1 % (45-73); Platelet Count 335 X10*3/uL (160-400); Red Blood Count 4.18 X10*6/uL (4.20-5.50); White Blood Count 4.7 X10*3/uL (4.8-10.8)
[2024-02-21 09:01] LABS: Appearance Urine Turbid; Color Urine Dark Yellow; Glucose Urine UA Negative (Negative); Leukocyte Esterase Urine Small (1+) (Negative); Nitrite Urine Negative (Negative); PH 6.5 (5.0-9.0); Specific Gravity - Urine 1.025 (1.005-1.025); UMIC TRIGGER UACC YES; UPreg QC Valid YES; Urine Blood Large (3+) (Negative); Urine Ketones Negative (Negative); Urine Pregnancy NEGATIVE (NEGATIVE); Urine Protein 30 (1+) mg/dL (Neg-Trace)
[2024-02-21 09:02] LABS: Bacteria Urine Trace (None Seen); Hyaline Casts Urine 0-2 /LPF (0-2); RBC Urine >20 /HPF (0-2); UACC Culture Trigger YES; WBC Urine 21-50 /HPF (0-5)
[2024-02-21 09:16] LABS: B Type Natriuretic Peptide < 10 pg/mL (<100)
[2024-02-21 09:27] LABS: C Reactive Protein 1.91 mg/dL (< or = 0.50)
[2024-02-21 09:35] LABS: Erythrocyte Sedimentation Rate 26 MM/HR (0-20)
[2024-02-21 09:40] LABS: Uric Acid 4.9 mg/dL (2.4-5.7)
[2024-02-21] MEDS: Morphine Sulfate Immed Release 15 MG TABLET PO (09:59)
[2024-02-21 10:31] LABS: Alanine Aminotransferase 11 U/L (0-31); Albumin Level 4.4 g/dL (3.5-5.0); Alkaline Phosphatase 61 U/L (39-117); Anion Gap 12 (12-20); Aspartate Amino Transferase 16 U/L (5-31); Bilirubin Total 0.4 mg/dL (0.0-1.0); Blood Urea Nitrogen 15 mg/dL (9-16); Calcium 9.3 mg/dL (8.4-10.2); Carbon Dioxide 24 mmol/L (22-29); Chloride 107 mmol/L (96-108); Creatinine Clr Calc Pharmacy 105.7; Estimated Glomerular Filt Rate > 60; Glucose Random 86 mg/dL (60-115); Potassium 3.9 mmol/L (3.3-5.1); Sodium 139 mmol/L (135-145); Total Protein 7.7 g/dL (6.5-8.0)
[2024-02-21 10:38] LABS: HCG Quantitative < 2 mIU/mL
[2024-02-21 10:47] VITALS: BP 124/76; PULSE 74; RESP 16; TEMP 36.7; O2SAT 97
[2024-02-22 21:14] LABS: Lyme Abs Screen <0.90 index
[2024-02-23 02:53] LABS: A. Phagocytphilium DNA,RT-PCR NOT DETECTED (NOT DETECTED); Babesia Microti DNA, RT-PCR NOT DETECTED (NOT DETECTED); Borrelia Miyamotoi,DNA RT-PCR NOT DETECTED (NOT DETECTED); E.Chaffeensis DNA RT-PCR NOT DETECTED (NOT DETECTED); Lyme(Borrelia ssp)DNA RT-PCR NOT DETECTED (NOT DETECTED)
[2024-02-25 15:33] LABS: Anti Nuclear Antibody Screen NEGATIVE (NEGATIVE)
== END 2024-02-21 10:52 | disposition home or self-care (01) ==
PROVIDERS: Physician Assistant Medical; Emergency Provider Emergency Medicine; PCP Family Medicine
DX: R60.0 Localized edema (principal); R06.02 Shortness of breath; M25.542 Pain in joints of left hand; M25.541 Pain in joints of right hand; M25.572 Pain in left ankle and joints of left foot; M25.532 Pain in left wrist; M25.531 Pain in right wrist; M79.10 Myalgia, unspecified site; M25.571 Pain in right ankle and joints of right foot; Z79.899 Other long term (current) drug therapy
CPT/HCPCS: 36415; 73110; 73130; 80053; 81001; 81025; 83880; 84550; 84702; 85025; 85652; 86038; 86140; 86617; 86618; 87086; 87147; 87468; 87469; 87478; 87484; 87798; 99283; 99284

== ENCOUNTER 2025-03-06 11:25 | Emergency (ER) | payer OTHER, SELFPAY ==
--- NOTE | ~2025-03-06 | XR_ITS ---
EXAMINATION: XR LUMBOSACRAL SPINE CLINICAL INFORMATION: pain COMPARISON: None available. TECHNIQUE: AP and lateral views FINDINGS: Rudimentary ribs at T12. No acute cortical disruption or malalignment. No lytic or blastic lesions. XR/XR lumbar spine 2-3V IMPRESSION: No acute fracture or listhesis. Electronically signed by: Will Oglesby MD 03/06/2025 12:12 PM EDT
[2025-03-06 11:43] VITALS: BP 168/80; PULSE 80; RESP 18; TEMP 36.7; O2SAT 100; BMI 41.5
--- NOTE | 2025-03-06 11:43 | ED_ITS ---
HPI - General Adult General Chief complaint: Abdominal Pain Stated complaint: lower back pain Time Seen by Provider: 03/06/25 13:30 Source: patient Mode of arrival: ambulatory Limitations: no limitations History of Present Illness ED Provider: HPI narrative: 39-year-old woman presenting with right lower back pain radiates up around into her flank and lower abdomen since this morning worse with movement without any nausea or vomiting fevers chills hematuria or dysuria hematemesis hematochezia. No numbness in the groin no numbness in her lower extremities no loss of bowel or bladder function. No IV drugs reported. She states yesterday she was sitting at a conference all day, today this started when she was walking a dog. Related Data Previous Rx's ?Medication ?Instructions ?Recorded cephalexin 500 mg tablet 500 mg PO Q6H 7 days #28 tab s 10/14/22 doxycycline hyclate 100 mg capsule 100 mg PO BID 10 da ys #20 caps 10/14/22 ibuprofen 400 mg tablet 400 mg PO Q6H PRN pain #20 t abs 12/02/22 benzonatate 150 mg capsule 150 mg PO TID PRN cough 5 d ays #15 03/05/23 caps naproxen 500 mg tablet 500 mg PO Q8-12H PRN pain (s dwayne 02/21/24 score 1-3) #20 tabs prednisone 20 mg tablet 40 mg (2 x 20 mg) PO DAILY 5 days 02/21/24 #10 tabs cyclobenzaprine 5 mg tablet 5 mg PO TID PRN muscle spa sm 2 03/06/25 days #7 tabs lidocaine 4 % topical patch 1 patch topical DAILY PRN pain #10 03/06/25 (Aspercreme (lidocaine)) ea methylprednisolone 4 mg tablets in 4 mg PO DAILY #21 e a 03/06/25 a dose pack (Medrol (Pablo)) Allergies Allergy/AdvReac Type Severity Reaction Status Date / Time penicillin V Allergy Unknown Rash Verified 03/06/25 11:45 Penicillins (PENICILLINS) Allergy Unknown RASH Verified 03/06/25 11:45 Review of Systems 2 Constitutional: Constitutional: Reports as per HPI [facility] Past Medical History Medical History No pertinent past medical history Social History Social History Patient Tobacco Use Status: Never used Tobacco Smoked in Last 30 Days: No Use of substances other than those prescribed or required for medical reasons: No Advance Directives: No Advance Directives Information Provided: Yes Patient : No Physical Exam ED Vital Signs: Vital Signs - 24 hr 03/06/25 11:43 03/06/25 12:20 Temperature 98.0 F 98.0 F Pulse Rate 80 80 Respiratory Rate 18 18 Blood Pressure 168/80 H 168/80 H Pulse Oximetry 100 100 Oxygen Delivery Method Room Air Room Air BMI result Body Mass Index 41.5 Const Other: * Gen: ?Overall well-appearing patient * CV: RRR, no obvious murmurs appreciated * Resp: ?No wheezing rales rhonchi no stridor moving air well * Abd: ?Bowel sounds are present, in the examination of the abdomen is otherwise unremarkable there was no tenderness no rebound or rigidity * MSK: FROM, strength 5/5 all extremities, tenderness along her right paraspinal spine, without midline spinal tenderness, there was no rashes, no CVA tenderness, no sensory or motor deficits in the lower extremities, negative straight leg raise test * Skin: Warm, dry, intact, * Neuro: ?Alert and oriented x3, moving upper and lower extremities symmetrically, no obvious facial asymmetry noted Course Course Course Narrative: RME, this is a rapid medical exam performed by Brian Washburn please refer to primary provider for complete H&P- 39-year-old female presents for evaluation of atraumatic low back pain that started this morning. Pain is worse with moving. Her pain is currently 8/10. Her pain radiates around to the front, denies any urinary symptoms. Plan for labs, urinalysis and an x-ray of the lumbar spine. Medical Decision Making Medical Decision Making [facility] Narrative: 2:06 PM 03/06/2025 (Dr. Vitor Seth): Presenting with back pain worse with movement, without any other symptoms to suspect renal colic, no risk factors for infectious etiology such as diskitis osteomyelitis or spinal epidural abscess and there was no evidence for any neurologic deficits or radiculopathy, lots of spasm on exam, x-ray without destructive lesions there is some loss of lordosis of the lumbar spine indicating underlying spasm we will medicate and discharge see my discharge instructions Differential Diagnosis Differential Diagnoses: The differential diagnosis associated with the presentation includes (Diskitis, osteomyelitis, spinal epidural abscess, cauda equina, musculoskeletal pain) Lab Data 03/06/25 11:57 03/06/25 11:57 Labs: Lab Results 03/06/25 03/06/25 Range/Units 11:57 11:58 WBC 6.3 (4.8-10.8) X10*3/uL RBC 4.21 (4.20-5.50) X10*6/uL Hgb 12.3 (12.0-16.0) g/dl Hct 35.1 L (37.0-47.0) % MCV 83.4 (80.0-98.0) fL MCH 29.2 (27.0-33.0) pg MCHC 35.0 (31.0-35.0) g/dl RDW 14.4 (11.0-16.0) % Plt Count 345 (160-400) X10*3/uL MPV 10.1 (9.4-12.3) fL Immature Gran % (Auto) 0.2 (0.0-0.4) % Neut % (Auto) 57.2 (45-73) % Lymph % (Auto) 31.0 (20-40) % [place] % (Auto) 7.8 (2-11) % Eos % (Auto) 3.0 (0-4) % Baso % (Auto) 0.8 (0-2) % Lymph # (Auto) 1.9 (1.2-4.9) X10*3/uL [place] # (Auto) 0.5 (0.1-1.2) X10*3/uL Eos # (Auto) 0.2 (0.0-0.4) X10*3/uL Baso # (Auto) 0.1 (0.0-0.2) X10*3/uL Abs Immat Gran (auto) 0.01 (0.00-0.03) X10*3/uL Absolute Neuts (auto) 3.6 (2.0-8.3) x10*3/uL Absolute Nucleated RBC 0.000 (0.0-0.012) X10*3/uL Nucleated RBC % (auto) 0.0 (0.0-0.2) /100WBC Sodium 141 (135-145) mmol/L Potassium 3.7 (3.3-5.1) mmol/L Chloride 108 (96-108) mmol/L Carbon Dioxide 26 (22-29) mmol/L Anion Gap 11 L (12-20) BUN 16 (9-16) mg/dL Creatinine 0.68 (0.5-1.4) mg/dL Estim Creat Clear Calc 122.4 Estimated GFR > 60 Random Glucose 79 (60-115) mg/dL Calcium 9.6 (8.4-10.2) mg/dL Total Bilirubin 0.3 (0.0-1.0) mg/dL AST 22 (5-31) U/L ALT 21 (0-31) U/L Alkaline Phosphatase 63 (39-117) U/L Total Protein 7.6 (6.5-8.0) g/dL Albumin 4.6 (3.5-5.0) g/dL Lipase 18 (8-78) U/L Beta HCG, Quant < 2 mIU/mL Urine Color Yellow Urine Appearance Clear Urine pH 6.0 (5.0-9.0) Ur Specific [place] >= 1.030 H (1.005-1.025) Urine Protein Negative (Neg-Trace) mg/dL Urine Glucose (UA) Negative (Negative) mg/dL Urine Ketones Negative (Negative) mg/dL Urine Blood Negative (Negative) Urine Nitrite Negative (Negative) Ur Leukocyte Esterase Trace H (Negative) Urine RBC 0-2 (0-2) /HPF Urine WBC 0-5 (0-5) /HPF Ur Squamous Epith Cells 11-20 (0-2) /HPF Urine Bacteria Trace (None Seen) Hyaline Casts 0-2 (0-2) /LPF Independent Interpretation I performed an independent interpretation of an: Plain X-Ray (No destructive lesions, no significant arthrosis, loss of lumbar lordosis) Radiology Impression Discussion of test interpretation with radiology: I have reviewed the radiologist's reading. Prescription Management I considered prescription management with: Pain Medication Discharge Plan Discharge Clinical Impression: Low back pain Patient Disposition: Home, Self-Care Instructions: Acute Low Back Pain (ED) Additional Instructions: Your workup is consistent with musculoskeletal back pain, you did have x-rays that show some evidence for muscle spasm and that is supported by a physical examination, you also had urinalysis, blood work all of which did not reveal any underlying infection for example to the kidney or urinary tract infection or passing kidney stones etc. Continue with steroids starting tomorrow, lidocaine patches to the area that hurts the most, I recommend also ice packs and heat packs to the area, gentle stretching, and muscle relaxants before bedtime, these make you drowsy do not mix with alcohol do not operate heavy machinery while taking this medication, follow up with the PCP for re-evaluation you may need outpatient MRI, physical therapy if you are are not improved Otherwise read discharge instructions and follow up return precautions outlined in the ED packet Prescriptions: New lidocaine [Aspercreme (lidocaine)] 4 % adhesive patch,medicated 1 patch topical DAILY PRN (Reason: pain) Qty: 10 0RF methylprednisolone [Medrol (Pablo)] 4 mg tablets,dose pack 4 mg PO DAILY Qty: 21 0RF Rx Instructions: Day 1: 24 mg on day 1 administered as 8 mg before breakfast, 4 mg after lunch, 4 mg after supper, and 8 mg at bedtime or 24 mg as a single dose or divided into 2 or 3 doses upon initiation. Day 2: 20 mg on day 2 administered as 4 mg before breakfast, 4 mg after lunch, 4 mg after supper, and 8 mg at bedtime. Day 3: 16 mg on day 3 administered as 4 mg before breakfast, 4 mg after lunch, 4 mg after supper, and 4 mg at bedtime. Day 4: 12 mg on day 4 administered as 4 mg before breakfast, 4 mg after lunch, and 4 mg at bedtime. Day 5: 8 mg on day 5 administered as 4 mg before breakfast and 4 mg at bedtime. Day 6: 4 mg on day 6 administered as 4 mg before breakfast. cyclobenzaprine 5 mg tablet 5 mg PO TID PRN (Reason: muscle spasm) 2 Days Qty: 7 0RF No Action doxycycline hyclate 100 mg capsule 100 mg PO BID 10 Days Qty: 20 0RF cephalexin 500 mg tablet 500 mg PO Q6H 7 Days Qty: 28 0RF benzonatate 150 mg capsule 150 mg PO TID PRN (Reason: cough) 5 Days Qty: 15 0RF naproxen 500 mg tablet 500 mg PO Q8-12H PRN (Reason: pain (scale score 1-3)) Qty: 20 0RF prednisone 20 mg tablet 40 mg PO DAILY 5 Days Qty: 10 0RF ibuprofen 400 mg tablet 400 mg PO Q6H PRN (Reason: pain) Qty: 20 0RF Referrals: Genevieve Coronado MD [Primary Care Provider, Internal Medicine] - 2 weeks Clinical Impression: Low back pain Print Language: Luxembourgish
[2025-03-06 12:04] LABS: MANUAL DIFF FLAG NO
[2025-03-06 12:06] LABS: Hematocrit 35.1 % (37.0-47.0); Hemoglobin 12.3 g/dl (12.0-16.0); Imm Gran Abs Auto 0.01 X10*3/uL (0.00-0.03); Imm Gran Pct Auto 0.2 % (0.0-0.4); Lymphocytes Absolute Auto 1.9 X10*3/uL (1.2-4.9); Mean Corpuscular HGB Conc 35.0 g/dl (31.0-35.0); Mean Corpuscular Hemoglobin 29.2 pg (27.0-33.0); Mean Corpuscular Volume 83.4 fL (80.0-98.0); NRBC Abs Auto 0.000 X10*3/uL (0.0-0.012); NRBC Pct Auto 0.0 /100WBC (0.0-0.2); Platelet Count 345 X10*3/uL (160-400); Red Blood Count 4.21 X10*6/uL (4.20-5.50); White Blood Count 6.3 X10*3/uL (4.8-10.8)
[2025-03-06 12:06] LABS: Appearance Urine Clear; Glucose Urine UA Negative (Negative); PH 6.0 (5.0-9.0); Specific Gravity - Urine >= 1.030 (1.005-1.025); UMIC TRIGGER UACC YES
[2025-03-06 12:20] VITALS: BP 168/80; PULSE 80; RESP 18; TEMP 36.7; O2SAT 100
[2025-03-06 12:27] LABS: Alanine Aminotransferase 21 U/L (0-31); Albumin Level 4.6 g/dL (3.5-5.0); Alkaline Phosphatase 63 U/L (39-117); Anion Gap 11 (12-20); Aspartate Amino Transferase 22 U/L (5-31); Blood Urea Nitrogen 16 mg/dL (9-16); Calcium 9.6 mg/dL (8.4-10.2); Carbon Dioxide 26 mmol/L (22-29); Chloride 108 mmol/L (96-108); Creatinine Clr Calc Pharmacy 122.4; Estimated Glomerular Filt Rate > 60; Lipase 18 U/L (8-78); Potassium 3.7 mmol/L (3.3-5.1); Sodium 141 mmol/L (135-145); Total Protein 7.6 g/dL (6.5-8.0)
--- NOTE | 2025-03-06 12:34 | PC.NURSE ---
Pt sitting in chair because it is more comfortable. Reports possible food poisoning day ago with nausea and diarrhea. Reports that sharp pain started today in her back after normal morning activities, radiating to lower abdomen. Reports cramping like I'm having contractions. Took Tylenol at 0730.
--- OUTSIDE RECORDS SUMMARY | 2025-03-06 14:05 | XMS_ITS | Encounter Summary ---
Author Organization [employer] Address [address] [place] [address] [address] [place] [address] Care Team Providers Care Branch Operations Coordinator Name Role Phone Genevieve Coronado MD Primary Care Provider [phone] Encounter Details Date Type Department Care Team (Late st Contact Info) Description 05/19/2022 Abstract [facility] MEDICINE [address] [place], [place] [phone] Genevieve Coronado MD [address] [place] [address] Social History Tobacco Use Types Packs/Day Years Used Date Smoking Tobacco: Never Assessed Comments Unknown Sex and Gender Information Value Date Recorded Sex Assigned at Female 04/10/2022 10:15 AM EDT Legal Sex Female 10:15 AM EDT Gender Identity Female 04/10/2022 10:15 AM EDT Sexual Orientation Straight 04/10/2022 10 :15 AM EDT documented as of this encounter Plan of Treatment Not on file documented as of this encounter Visit Diagnoses Not on filedocumented in this encounter Care Teams Branch Operations Coordinator Relationship Specialty Start Date End Date Genevieve Coronado MD [address] [place], [place] [phone] PCP - General Family Medicine 06/11/18 documented as of this encounter
--- OUTSIDE RECORDS SUMMARY | 2025-03-06 14:05 | XMS_ITS | Encounter Summary ---
Author Organization [employer] Address [address] [facility] [address] [place] [address] Care Team Providers Care Ski Base Trimmer Name Role Phone Genevieve Coronado MD Primary Care Provider [phone] Encounter Details Date Type Department Care Team (Late st Contact Info) Description 01/05/2023 Orders Only [facility] MEDICINE [address] [place], [place] [phone] Svitlana Diego RN [address] [place] [address] Social History Tobacco Use Types Packs/Day Years Used Date Smoking Tobacco: Never Passive Smoke Exposure: Never Smokeless Tobacco: Never Depression Answer Date Recorded Patient Health Questionnaire-9 Score 0 10/17/2022 Depression Answer Date Recorded Patient Health Questionnaire-2 Score 0 10/17/2022 Comments Unknown Sex and Gender Information Value Date Recorded Sex Assigned at Female 04/10/2022 10:15 AM EDT Legal Sex Female 10:15 AM EDT Gender Identity Female 04/10/2022 10:15 AM EDT Sexual Orientation Straight 04/10/2022 10 :15 AM EDT documented as of this encounter Plan of Treatment Not on file documented as of this encounter Procedures Procedure Name Priority Date/Time Associated Diagnosis Comments BIOPSY CERVIX Routine 01/30/2019 12:00 AM EDT HM PAP/HPV Routine 10/14/2018 12:00 AM EDT documented in this encounter Results * Biopsy cervix (01/30/2019 12:00 AM EDT) us Historical Provider MD IN CLINIC/BEDSIDE ORDERAB LES Final Result [facility] [address] [place] [address] * Hm Pap Smear (10/14/2018 12:00 AM EDT) Genevieve Coronado MD HEALTH MAINTENANCE Final Result [facility] [address] [place] [phone] documented in this encounter Visit Diagnoses Not on filedocumented in this encounter Additional Health Concerns Assessment Noted Time PHQ-9 Depression Total Score: 0 10/18/19 23 10:52 AM EDT documented as of this encounter Care Teams Ski Base Trimmer Relationship Specialty Start Date End Date Genevieve Coronado MD [address] [place] [phone] PCP - General Family Medicine 06/11/18 documented as of this encounter
--- OUTSIDE RECORDS SUMMARY | 2025-03-06 14:05 | XMS_ITS | Encounter Summary ---
Author Organization [employer] Address [address] [facility] [address] [place] [address] Care Team Providers Care Rural Carrier Name Role Phone Genevieve Coronado MD Primary Care Provider [phone] Encounter Details Date Type Department Care Team (Late st Contact Info) Description 03/06/2025 Orders Only GENERIC EXTERNAL DATA DEPARTMENT Provider, Generic External Data Social History Tobacco Use Types Packs/Day Years Used Date Smoking Tobacco: Never Passive Smoke Exposure: Never Smokeless Tobacco: Never Depression Answer Date Recorded Patient Health Questionnaire-9 Score 0 10/17/2022 Housing Stability Answer Date Recorded What is your housing situation today? I have roseann gabriel 04/16/[address] you li ve. Do you have problems with any of the following? None of the above 04/16/2023 Food Insecurity Answer Date Recorded Within the past 12 months, y ou worried that your food would run out before you got money to buy more: Never True 04/16/2023 Within the past 12 months,th e food you bought just didn't last and you didn't have enough money to get more: Never True 11/2022 Transportation Answer Date Recorded In the past 12 months, has l ack of transportation kept you from medical appts, meetings, work or from getting things needed for daily living? No 04/16/2023 Utilities Answer Date Recorded In the past 12 months, has t he electric, gas, oil or water company threatened to shut off services in your home? No 04/16/2023 Depression Answer Date Recorded Patient Health Questionnaire-2 [...] Procedure Name Priority Date/Time Associated Diagnosis Comments XR LUMBAR SPINE 2-3 VIEWS Routine 03/06/2025 12:07 PM EDT URINALYSIS, COMPLETE, WITH REFLEX TO CULTURE Routine 03/06/2025 11:58 AM EDT CBC WITH AUTO DIFFERENTIAL Routine 03/06/2025 11:57 AM EDT HCG, TOTAL, QN Routine 03/06/2025 11:57 AM EDT LIPASE Routine 03/06/2025 11:57 AM EDT COMPREHENSIVE METABOLIC PANEL Routine 03/06/2025 11:57 AM EDT documented in this encounter Results * XR Lumbar Spine 2-3 Views (03/06/2025 12:07 PM EDT) Anatomical Region Laterality Modality Spine, L-spine Radiographic Marcie ging 03/06/2025 12:0 7 PM EDT Narrative 03/06/2025 12:16 PM EDT [place] [address] XRay Report Signed Patient: Anusha Jordan MR#: [id number] 53 : 1985 Acct:[id number] Age/Sex: 39 / F ADM Date: 03/06/25 Loc: HO.ED Attending Dr: Ordering Physician: Reese Washburn Date of Service: 03/06/25 Procedure(s): XR lumbar spine 2-3V Accession Number(s): [id number] cc: Reese Washburn; Genevieve Coronado MD Reason for Exam: pain EXAMINATION: XR LUMBOSACRAL SPINE CLINICAL INFORMATION: pain COMPARISON: None available. TECHNIQUE: AP and lateral views FINDINGS: Rudimentary ribs at T12. No acute cortical disruption or malalignment. No lytic or blastic lesions. XR/XR lumbar spine 2-3V IMPRESSION: No acute fracture or listhesis. Electronically signed by: Will Oglesby MD 03/06/2025 12:12 PM EDT RP Dictated By: Will Reid MD Signed By: <Electronically signed by Will Lobo MD in OV> 03/06/25 1212 DD/ 1207 TD/TT: 03/06/25 1208 Senior Java Programmer: Procedure Note Donotuseinterpreter, Image - 03/06/2025 [place] [address] XRay Report Signed Patient: Anusha Jordan EMR#: [id number] 51 : 1985Acct:[id number] Age/Sex: 39 / FADM Date: 03/06/25 Loc: .ED Attending Dr: Ordering Physician: Reese Washburn Date of Service: 03/06/25 Procedure(s): XR lumbar spine 2-3V Accession Number(s): [id number] cc: Reese Washburn; Genevieve Coronado MD Reason for Exam: pain EXAMINATION: XR LUMBOSACRAL SPINE CLINICAL INFORMATION: pain COMPARISON: None available. TECHNIQUE: AP and lateral views FINDINGS: Rudimentary ribs at T12. No acute cortical disruption or malalignment. No lytic or blastic lesions. XR/XR lumbar spine 2-3V IMPRESSION: No acute fracture or listhesis. Electronically signed by: Will Oglesby MD 03/06/2025 12:12 PM EDT RP Dictated By: Will Reid MD Signed By: <Electronically signed by Will Lobo MDin OV> 03/06/25 1212 DD/ 1207 TD/TT: 03/06/25 1208 Senior Java Programmer: us [facility] External Provider IMG XR PROCEDURES Final Result * (ABNORMAL) Urinalysis, Complete, with Reflex to Culture (03/06/2025 11:58 AM EDT) Color Urine Yellow [facility] Appearance Urine Clear [facility] PH 6.0 5.0 - 9.0 [facility] Glucose Urine UA Negative Negative mg/dL [facility] Urine Blood Negative Negative [facility] Specific [place] - Urine >=1.030(H) 1.005 - 1.025 [facility] Urine Protein Negative Neg-Trace mg/dL [facility] Urine Ketones Negative Negative mg/dL [facility] Nitrite Urine Negative Negative [facility] Leukocyte Esterase Urine Trace(A) Negative [facility] RBC Urine 0-2 0 - 2 /HPF [facility] Urine WBC 0-5 0 - 5 /HPF [facility] Urine Squamous Epithelial Cell 11-20 0 - 2 /HPF [facility] Urine Bacteria Trace None Seen [facility] Hyaline Casts, Urine 0-2 0 - 2 /LPF [facility] 03/06/2025 11:5 8 AM EDT 03/06/2025 12:02 PM EDT Narrative [facility] - 03/06/2025 12:25 PM EDT Urine, Clean Catch Generic External Data Provider LAB URINE ORDERAB LES Final Result Performing Organization Address City/State/[facility] Co de Phone Number [facility] [address] [place] [phone] * hCG, Total, Quantitative (03/06/2025 11:57 AM EDT) HCG Quantitative <2 mIU/mL [facility] Comment:Weeks post LMP Appro ximate hCG(Last Menstrual Period) Range (mIU/ml)3 - 4 weeks 9 - 1304 - 5 weeks 75 - 2,6005 - 6 weeks 850 - 20,8006 - 7 weeks 4000 - 100,2007 - 12 weeks 11,500 - 289,78737 - 16 weeks 18,300 - 137,92172 - 29 weeks (2nd trimester) 1,400 - 53,40973 - 41 weeks (3rd trimester) 940 - 60,000The [place]gui B- hCG assay is used for the early detection ofpregnancy; it cannot be used to diagnose any conditionunrelated to . If a B-hCG level is not supportedby the clinical evidence, results should be confirmed by analternative method (qualitative urine hCG, for example). 03/06/2025 11:5 7 AM EDT 03/06/2025 12:02 PM EDT Generic External Data Provider LAB BLOOD ORDERAB LES Final Result Performing Organization Address City/[facility]/ZIP Co de Phone Number [facility] [address] [place] [phone] * Lipase (03/06/2025 11:57 AM EDT) Pathologist [facility] Lipase 18 8 - 78 U/L [facility] 03/06/2025 11:5 7 AM EDT 03/06/2025 12:02 PM EDT Generic External Data Provider LAB BLOOD ORDERAB LES Final Result Performing Organization Address [facility] Co de Phone Number [facility] [address] [place] [phone] * (ABNORMAL) Comprehensive Metabolic Panel (03/06/2025 11:57 AM EDT) Sodium 141 135 - 145 mmol/L [facility] Potassium 3.7 3.3 - 5.1 mmol/L [facility] Chloride 108 96 - 108 mmol/L [facility] Carbon Dioxide 26 22 - 29 mmol/L [facility] Anion Gap 11(L) 12 - 20 [facility] Urea Nitrogen (BUN) 16 9 - 16 mg/dL [facility] Creatinine, Serum 0.68 0.5 - 1.4 mg/dL [facility] Creatinine Clr Calc Pharmacy 122.4 [facility] Comment:Provided height and weight: 157.48 cm,102.965 kg.eGFR (calculated from the MDRD study equation) and eCrCl(calculated from the Cockcroft-Gault equation) are based ondifferent parameters and may not yield comparable results.If eCrCl result is absurd, please check patient'sheight/weight. Estimated Glomerular Filt Rate >60 [facility] Comment:Chronic Kidney Disea se: Estimated GFR < 60 mL/min/1.49m6Spiabr Kidney Disease: Estimated GFR < 15 mL/min/1.73m2 Glucose 79 60 - 115 mg/dL [facility] Calcium 9.6 8.4 - 10.2 mg/dL [facility] Bilirubin, Total 0.3 0.0 - 1.0 mg/dL [facility] Aspartate Amino Transferase 22 5 - 31 U/L [facility] Alanine Aminotransferase 21 0 - 31 U/L [facility] Total Protein 7.6 6.5 - 8.0 g/dL [facility] Albumin Level 4.6 3.5 - 5.0 g/dL [facility] Alkaline Phosphatase 63 39 - 117 U/L [facility] 03/06/2025 11:5 7 AM EDT 03/06/2025 12:02 PM EDT us Generic External Data Provider LAB BLOOD ORDERAB LES Final Result [facility] [address] [place] [phone] * (ABNORMAL) CBC auto differential (03/06/2025 11:57 AM EDT) White Blood Count 6.3 4.8 - 10.8 X10*3/uL [facility] Red Blood Count 4.21 4.20 - 5.50 X10*6/uL [facility] Hemoglobin 12.3 12.0 - 16.0 g/dl [facility] Hematocrit 35.1(L) 37.0 - 47.0 % [facility] Mean Corpuscular Volume 83.4 80.0 - 98.0 fL [facility] Mean Corpuscular Hemoglobin 29.2 27.0 - 33.0 pg [facility] Mean Corpuscular HGB Conc 35.0 31.0 - 35.0 g/dl [facility] Red Cell Distribution Width 14.4 11.0 - 16.0 % [facility] Platelet Count 345 160 - 400 X10*3/uL [facility] Mean Platelet Volume 10.1 9.4 - 12.3 fL [facility] Neutrophils Percent Auto 57.2 45 - 73 % [facility] Imm Gran Pct Auto 0.2 0.0 - 0.4 % [facility] Lymphocytes Percent Auto 31.0 20 - 40 % [facility] Monocytes Percent Auto 7.8 2 - 11 % [facility] Eosinophils Percent Auto 3.0 0 - 4 % [facility] Basophils Percent Auto 0.8 0 - 2 % [facility] NRBC Pct Auto 0.0 0.0 - 0.2 /100WBC [facility] Neutrophils Absolute Auto 3.6 2.0 - 8.3 x10*3/uL [facility] Imm Gran Abs Auto 0.01 0.00 - 0.03 X10*3/uL [facility] Lymphocytes Absolute Auto 1.9 1.2 - 4.9 X10*3/uL [facility] Monocytes Absolute Auto 0.5 0.1 - 1.2 X10*3/uL [facility] Eosinophils Absolute Auto 0.2 0.0 - 0.4 X10*3/uL [facility] Basophils Absolute Auto 0.1 0.0 - 0.2 X10*3/uL [facility] NRBC Abs Auto 0.000 0.0 - 0.012 X10*3/uL [facility] 03/06/2025 11:5 7 AM EDT 03/06/2025 12:02 PM EDT us Generic External Data Provider LAB BLOOD ORDERAB LES Final Result [facility] [address] [place] [phone] documented in this encounter Visit Diagnoses Not on filedocumented in this encounter Additional Health Concerns Assessment Noted Time PHQ-9 Depression Total Score: 0 10/18/19 23 10:52 AM EDT documented as of this encounter Care Teams Rural Carrier Relationship Specialty Start Date End Date Genevieve Coronado MD [address] [place] [phone] PCP - General Family Medicine 06/11/18 documented as of this encounter
--- OUTSIDE RECORDS SUMMARY | 2025-03-06 14:05 | XMS_ITS | Clinical Summary ---
Author Organization [employer] Address [address] [facility] [address] [place] [address] Care Team Providers Care Engine Installer Name Role Phone Genevieve Coronado MD Primary Care Provider [phone] Allergies Active Allergy Reactions Criticality Noted Date Comments Penicillins Rash Low 06/08/2010 Medications triamcinolone (Kenalog) 0.1 % creamIndication s:Lichen simplex chronicus Apply topically if needed in the morning and at bedtime (pain and swelling). Mix with cerave 80 g 3 3 Active betamethasone, augmented, (Diprolene) 0.05 % ointmentIndicat ions:Lichen simplex chronicus Apply topically 2 times daily. 45 g 1 3 Active loratadine (Claritin) 10 MG tablet Take 1 tablet (10 mg) by mouth in the morning. 90 tablet 3 3 Active ibuprofen 400 MG tablet 400 mg. 3 Active fluticasone (Flonase) 50 MCG/ACT nasal spray INSTILL 1-2 SPRAYS IN EACH NOSTRIL ONCE DAILY IN THE MORNING. PRIME PUMP BEFORE FIRST USE. 48 g 1 4 Active Active Problems Problem Noted Date Diagnosed Date Gastroenteritis 06/25/2024 Assessment & Plan (06/25/2024 6:16 PM EST): It seems to be viral, today's rapid tests are NEG. Advised re increased PO hydration today, advance to BRAT diet as tolerated x 1- 2d then soft diet. Take Imodium prn severe diarrhea only, take tylenol prn fever, sore throat Out of work x 2 more days, re consult prn Family history of diabetes mellitus (DM) 023 Assessment & Plan (10/17/2022 11:19 AM EDT): Will monitor with DM screenings - continue working on lifestyle modifications Chronic left shoulder pain 10/17/2022 Assessment & Plan (10/17/2022 11:27 AM EDT): Last flare up was in 2019. -XR ordered in 2019 which resulted in WNL -Has been in PT -asymptomatic Routine general medical exam ination at a health care facility 10/17/2022 Abdominal wall abscess 10/17/2022 Assessment & Plan (10/17/2022 12:34 PM EDT): Seen in ED recently, Rx Keflex and Doxycycline -states she is allergic to Amoxicillins which causes a rash so she is using doxycycline only -Pt will start Keflex; she was advised to discontinue Keflex if she develops rash and contact [facility] for further instructions Rash 10/17/2022 Assessment & Plan (10/20/2022 3:18 PM EDT): Patient has been evaluated by [facility]ology [facility], Dr. Logan Dx with Lichen Simplex Chronicus Patient has difficulty affording one of the medications: Betamethasone -advised to continue using Clobetasol instead of betamethasone for now -continue applying the compound cream prescribed by Dermatology Clinic Lichen simplex chronicus 10/17/2022 Assessment & Plan (10/20/2022 3:18 PM EDT): - evaluated by Dr. Logan on 10/13/22 - Patient has difficulty affording one of the medications: Betamethasone -advised to continue using Clobetasol instead of betamethasone for now -continue applying the compound cream prescribed by Dermatology Clinic - avoid irritation Dyshidrotic eczema 09/27/2022 Assessment & Plan (10/17/2022 12:56 PM EDT): Patient has been seen by Dr. Logan in Dermatology -continue treatment plan as per Dermatology Clinic -problem affording one medication, patient advised to use Clobetasol for now Assessment & Plan (09/27/2022 9:13 AM EDT): Use clobetasol cream bid x 2w to affected areas then 1x/d and fu with dermatology Derm referral Use Ammonium lactate cream or OTC moisturizer/non scented cream (cerave, Eucerin, gold jones etc). Order labs to ro underlying condition Avoid scented soaps or moisturizers. FU prn w pcp Eczema 08/17/2021 Seasonal allergies 08/17/2021 Assessment & Plan (10/17/2022 12:55 PM EDT): -Restart Loratadine and Nasal [place] -consider referral to [facility] since she has eczema Encounters Date Type Department Care Team Description 03/06/2025 Orders Only GENERIC EXTERNAL DATA DEPARTMENT Provider, Generic External Data from Last 3 Months Immunizations Immunization Administration Dates Next Due DTaP 08/07/1988, 7,07/17/1985,1984,02/14/1985 Hep B, Adolescent or Pediatric 01/29/2001,1999,02/16/1999 Hib ([facility]) 02/20/1986 IPV 08/07/1988, 7,07/17/1985,1984,02/14/1985 Influenza injectable quadriv alent preservative free 04/08/2021,03/21/2020 Influenza, IIV3, injectable 03/11/2014 Influenza, Split (incl. darlyn fied surface antigen) 03/28/2012 MMR 02/18/1996,02/14/1985 Pfizer Covid-19 Vaccine 12+ 07/16/2020, 1 TD (adult), 2 Lf tetanus tox oid, preservative free, adsorbed 03/11/2014,02/16/1999 Tdap 07/11/2010 Family History Medical History Relation Name Comments Diabetes Mother Relation Name Status Comments Mother Social History Tobacco Use Types Packs/Day Years Used Date Smoking Tobacco: Never Passive Smoke Exposure: Never Smokeless Tobacco: Never Tobacco Cessation:Counseling Given: Not Answered Depression Answer Date Recorded Patient Health Questionnaire-9 Score 0 10/17/2022 Housing Stability Answer Date Recorded What is your housing situation today? I have roseann rios 04/16/[address] you li [...] Orientation Straight 04/10/2022 10 :15 AM EDT Last Filed Vital Signs Vital Sign Reading Time Taken Comments Blood Pressure 129/80 06/25/2024 5:47 PM EST Pulse 94 06/25/2024 5:47 PM EST Temperature 36.7 C (98.1 F) 06/25/2024 5:47 PM EST Respiratory Rate 19 06/25/2024 5:47 PM EST Oxygen Saturation 96% 06/25/2024 5:47 PM EST Inhaled Oxygen Concentration - - Weight 97.1 kg (214 lb) 06/25/2024 5:47 PM EST Height 157.5 cm (5' 2 ) 06/25/2024 5:47 PM EST Body Mass Index 39.14 06/25/2024 5:47 PM EST Plan of Treatment Health Maintenance Due Date Last Done Comments HIV Screening 1983 Disability Screening 1983 Alcohol/Substance Use Screening 1995 Family Planning (PISQ) 1998 HPV Vaccines (1 - 3-dose series) 1998 Hepatitis C Screening 2001 Cervical Cancer Screening 01/31/2020 HPV/Cotest 01/31/2020 10/14/2018 Pap Smear 01/31/2020 10/14/2018 Mammogram 2023 Depression Screening 10/18/2023 10/17/2022, 10/18/19 23 SDOH Screening 10/18/2023 10/17/2022 DTaP/Tdap/Td Vaccines (8 - Td or Tdap) 03/11/2024 03/11/2014, 07/11/2010, 02/16/1999, Additional history exists Tobacco Screening 07/23/2024 07/23/2023 COVID-19 Vaccine ( season) 2025 08/18/2021, 07/16/2020, 06/25/2020 Influenza Vaccine (#1) 2025 , 03/21/2020, 03/11/2014, Additional history exists Zoster Vaccines (1 of 2) 2033 RSV Patients and Patients Aged 60 years or older (1 - 1-dose 75+ series) 2058 HIB Vaccines Completed 02/20/1986 IPV Vaccines Completed 08/07/1988, 02/1987, 07/17/1985, Additional history exists Hepatitis B Vaccines Completed 01/29/2001, 06/22/1999, 02/16/1999 Hepatitis A Vaccines Aged Out No long er eligible based on patient's age to complete this topic Meningococcal B Vaccine Aged Out No l onger eligible based on patient's age to complete this topic Meningococcal Vaccine Aged Out No anisha nirmal eligible based on patient's age to complete this topic Pneumococcal Vaccine: Pediatrics (0 to 5 Years) and At-Risk Patients (6 to 49) Years Aged Out No longer eligible based on patient's age to complete this topic RSV under 20 months Aged Out No longe r eligible based on patient's age to complete this topic Rotavirus Vaccines Aged Out No longer eligible based on patient's age to complete this topic Procedures Procedure Name Priority Date/Time Associated Diagnosis Comments XR LUMBAR SPINE 2-3 VIEWS Routine 03/06/2025 12:07 PM EDT URINALYSIS, COMPLETE, WITH REFLEX TO CULTURE Routine 03/06/2025 11:58 AM EDT HCG, TOTAL, QN Routine 03/06/2025 11:57 AM EDT LIPASE Routine 03/06/2025 11:57 AM EDT COMPREHENSIVE METABOLIC PANEL Routine 03/06/2025 11:57 AM EDT CBC WITH AUTO DIFFERENTIAL Routine 03/06/2025 11:57 AM EDT ZZZ HISTORICAL HPV MRNA E6/E7 Routine 10/14/2018 11:26 AM EDT HM PAP/HPV Routine 10/14/2018 12:00 AM EDT from Last 3 Months or Most Recently Relevant to Health Maintenance Results * XR Lumbar Spine 2-3 Views (03/06/2025 12:07 PM EDT) Anatomical Region Laterality Modality Spine, L-spine Radiographic Marcie ging 03/06/2025 12:0 7 PM EDT Narrative 03/06/2025 12:16 PM EDT [place] [address] XRay Report Signed Patient: Anusha Jordan MR#: [id number] 53 : 1985 Acct:[id number] Age/Sex: 39 / F ADM Date: 03/06/25 Loc: .ED Attending Dr: Ordering Physician: Reese Washburn Date of Service: 03/06/25 Procedure(s): XR lumbar spine 2-3V Accession Number(s): [id number] cc: Reese Washburn; Genevieve Coronado MD Reason [...] 03/06/25 1212 DD/ 1207 TD/TT: 03/06/25 1208 Quality Assurance Technician: Procedure Note Donotuseinterpreter, Image - 03/06/[address] [address] XRay Report Signed Patient: Anusha Jordan EMR#: [id number] 51 : 1985Acct:[id number] Age/Sex: 39 / FADM Date: 03/06/25 Loc: .ED Attending Dr: Ordering Physician: Reese Washburn Date of Service: 03/06/25 Procedure(s): XR lumbar spine 2-3V Accession Number(s): [id number] cc: Reese Washburn; Genevieve Coronado MD Reason [...] 03/06/25 1212 DD/ 1207 TD/TT: 03/06/25 1208 Quality Assurance Technician: [facility] External Provider IMG XR PROCEDURES Final Result * (ABNORMAL) Urinalysis, Complete, with Reflex to Culture (03/06/2025 11:58 AM EDT) Color Urine Yellow [facility] Appearance Urine Clear [facility] PH 6.0 5.0 - 9.0 [facility] Glucose Urine UA Negative Negative mg/dL [facility] Urine Blood Negative Negative [facility] Specific [place] - Urine >=1.030(H) 1.005 - 1.025 [facility] Urine Protein Negative Neg-Trace mg/dL [facility] Urine Ketones Negative Negative mg/dL [facility] Nitrite Urine Negative Negative [facility] Leukocyte Esterase Urine Trace(A) Negative [facility] RBC Urine 0-2 0 - 2 /HPF [facility] Urine WBC 0-5 0 - 5 /HPF [facility] Urine Squamous Epithelial Cell 11-20 0 - 2 /HPF [facility] Urine Bacteria Trace None Seen [facility] Hyaline Casts, Urine 0-2 0 - 2 /LPF [facility] 03/06/2025 11:5 8 AM EDT 03/06/2025 12:02 PM EDT Narrative [facility] - 03/06/2025 12:25 PM EDT Urine, Clean Catch us Generic External Data Provider LAB URINE ORDERAB LES Final Result [facility] [address] [place] [phone] * (ABNORMAL) CBC auto differential (03/06/2025 11:57 AM EDT) White Blood Count 6.3 4.8 - 10.8 X10*3/uL [facility] Red Blood Count 4.21 4.20 - 5.50 X10*6/uL [facility] Hemoglobin 12.3 12.0 - 16.0 g/dl [facility] Hematocrit 35.1(L) 37.0 - 47.0 % [facility] Mean Corpuscular Volume 83.4 80.0 - 98.0 fL [facility] Mean Corpuscular Hemoglobin 29.2 27.0 - 33.0 pg [facility] Mean Corpuscular HGB Conc 35.0 31.0 - 35.0 g/dl [facility] Red Cell Distribution Width 14.4 11.0 - 16.0 % [facility] Platelet Count 345 160 - 400 X10*3/uL [facility] Mean Platelet Volume 10.1 9.4 - 12.3 fL [facility] Neutrophils Percent Auto 57.2 45 - 73 % [facility] Imm Gran Pct Auto 0.2 0.0 - 0.4 % [facility] Lymphocytes Percent Auto 31.0 20 - 40 % [facility] Monocytes Percent Auto 7.8 2 - 11 % [facility] Eosinophils Percent Auto 3.0 0 - 4 % [facility] Basophils Percent Auto 0.8 0 - 2 % [facility] NRBC Pct Auto 0.0 0.0 - 0.2 /100WBC [facility] Neutrophils Absolute Auto 3.6 2.0 - 8.3 x10*3/uL [facility] Imm Gran Abs Auto 0.01 0.00 - 0.03 X10*3/uL [facility] Lymphocytes Absolute Auto 1.9 1.2 - 4.9 X10*3/uL [facility] Monocytes Absolute Auto 0.5 0.1 - 1.2 X10*3/uL [facility] Eosinophils Absolute Auto 0.2 0.0 - 0.4 X10*3/uL [facility] Basophils Absolute Auto 0.1 0.0 - 0.2 X10*3/uL [facility] NRBC Abs Auto 0.000 0.0 - 0.012 X10*3/uL [facility] 03/06/2025 11:5 7 AM EDT 03/06/2025 12:02 PM EDT us Generic External Data Provider LAB BLOOD ORDERAB LES Final Result [facility] [address] [place] [phone] [phone] * hCG, Total, Quantitative (03/06/2025 11:57 AM EDT) HCG Quantitative <2 mIU/mL [facility] Comment:Weeks post LMP Appro ximate hCG(Last Menstrual Period) Range (mIU/ml)3 - 4 weeks 9 - 1304 - 5 weeks 75 - 2,6005 - 6 weeks 850 - 20,8006 - 7 weeks 4000 - 100,2007 - 12 weeks 11,500 - 289,29448 - 16 weeks 18,300 - 137,24288 - 29 weeks (2nd trimester) 1,400 - 53,19881 - 41 weeks (3rd trimester) 940 - [...] ORDERAB LES Final Result Performing Organization Address City/[facility]/ZIP Co de Phone Number [facility] [address] [place] [phone] * Lipase (03/06/2025 11:57 AM EDT) Lipase 18 8 - 78 U/L [facility] 03/06/2025 11:5 7 AM EDT 03/06/2025 12:02 PM EDT Generic External Data Provider LAB BLOOD ORDERAB LES Final Result Performing Organization Address City/[facility]/ZIP Co de Phone Number [facility] [address] [place] [phone] * (ABNORMAL) Comprehensive Metabolic Panel (03/06/2025 11:57 AM EDT) Sodium 141 135 - 145 mmol/L [facility] Potassium 3.7 3.3 - 5.1 mmol/L [facility] Chloride 108 96 - 108 mmol/L [facility] Carbon Dioxide 26 22 - 29 mmol/L [facility] Anion Gap 11(L) 12 - 20 [facility] Urea Nitrogen (BUN) 16 9 - 16 mg/dL [facility] Creatinine, Serum 0.68 0.5 - 1.4 mg/dL [facility] Creatinine Clr Calc Pharmacy 122.4 [facility] Comment:Provided height and weight: 157.48 cm,102.965 kg.eGFR (calculated from the MDRD study equation) and eCrCl(calculated from the Cockcroft-Gault equation) are based ondifferent parameters and may not yield comparable results.If eCrCl result is absurd, please check patient'sheight/weight. Estimated Glomerular Filt Rate >60 [facility] Comment:Chronic Kidney Disea se: Estimated GFR < 60 mL/min/1.95i0Kthkhc Kidney Disease: Estimated GFR < 15 mL/min/1.73m2 Glucose 79 60 - 115 mg/dL [facility] Calcium 9.6 8.4 - 10.2 mg/dL [facility] Bilirubin, Total 0.3 0.0 - 1.0 mg/dL [facility] Aspartate Amino Transferase 22 5 - 31 U/L [facility] Alanine Aminotransferase 21 0 - 31 U/L [facility] Total Protein 7.6 6.5 - 8.0 g/dL [facility] Albumin Level 4.6 3.5 - 5.0 g/dL [facility] Alkaline Phosphatase 63 39 - 117 U/L [facility] 03/06/2025 11:5 7 AM EDT 03/06/2025 12:02 PM EDT us Generic External Data Provider LAB BLOOD ORDERAB LES Final Result [facility] [address] [place] [phone] * (ABNORMAL) HPV mRNA E6/E7 (10/14/2018 11:26 AM EDT) HPV mRNA E6/E7 DETECTED (AA) NOT DETECTED [facility] Comment: This test was performed using the APTIMA(R) HPV Assay ([employer] This assay detects E6/E7 viral messenger RNA (mRNA) from 14 high-risk HPV types (16,18,31,33,35,39,45,51, 52,56,58,59,66,68). For additional information please refer to: http://education.Medrio/faq/BUC924a4 (This link is being provided for informational/ educational purposes only.) The analytical performance characteristics of this assay have been determined by [employer] [place], [place]. The modifications have not been cleared or approved by the FDA. This assay has been validated pursuant to the CLIA regulations and is used for clinical purposes. Test Performed by [facility], [address] [place] [address] Eligio Brewster M.D., Ph.D., Director of Laboratories , CLIA [id number] Please note: Effective 02/21/2016, HPV testing will be performed using [employer]'s APTIMA test which targets mRNA. Detecting mRNA instead of DNA, as in older methods, offers significant improvements in specificity. 10/14/2018 11:2 6 AM EDT Genevieve Coronado MD HISTORICAL/NON ORDERABLE LABS Fi nal Result [facility] [address] * Hm Pap Smear (10/14/2018 12:00 AM EDT) Genevieve Coronado MD HEALTH MAINTENANCE Final Result Performing Organization Address [facility]/ZIP Co de Phone Number [facility] [address] [place] [address] [phone] from Last 3 Months or Most Recently Relevant to Health Maintenance Care Teams Engine Installer Relationship Specialty Start Date End Date Genevieve Coronado MD [address] [place] [phone] PCP - General Family Medicine 06/11/18
[2025-03-06] MEDS: Lidocaine 4 % Patch ADH..PATCH 1 PATCH TRANSDERMA (14:11)
--- NOTE | 2025-03-06 14:21 | PC.NURSE ---
Pt wants to drive herself home, so she declined the oxycodone.
[2025-03-06 14:29] VITALS: BP 168/80; PULSE 80; RESP 18; TEMP 36.7; O2SAT 100
== END 2025-03-06 14:37 | disposition home or self-care (01) ==
PROVIDERS: Physician Assistant; Emergency Provider Emergency Medicine; PCP Family Medicine
DX: M54.50 Low back pain, unspecified (principal)
CPT/HCPCS: 36415; 72100; 80053; 81001; 83690; 84702; 85025; 96374; 99284; J1885

== ENCOUNTER → 2025-03-06 11:43 | Outpatient (BNV) | payer OTHER, SELFPAY | PROVIDERS: PCP Family Medicine; Visit Provider Radiology Diagnostic Radiology | DX: M54.50 Low back pain, unspecified (principal) | CPT/HCPCS: 72100 ==